=== PATIENT | female | born 1955 | race Caucasian/White ===

== ENCOUNTER → 2020-04-16 09:03 | Outpatient (BNVA) | payer MEDICARE, SELFPAY | PROVIDERS: Family Provider Family Medicine; PCP Family Medicine; Visit Provider Specialist | DX: M79.641 Pain in right hand (principal); M79.642 Pain in left hand; G56.23 Lesion of ulnar nerve, bilateral upper limbs; E11.40 Type 2 diabetes mellitus with diabetic neuropathy, unspecified; Z79.4 Long term (current) use of insulin; Z87.891 Personal history of nicotine dependence | CPT/HCPCS: 95908; 95910 ==

== ENCOUNTER 2021-04-21 13:24 | Emergency (ER) | payer MEDICARE, SELFPAY ==
--- NOTE | 2021-04-21 13:38 | ECG_ITS ---
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 Measurements Intervals [place] Rate: 112 P: 4 ME: 108 QRS: -45 QRSD: 113 T: 34 QT: 327 QTc: 447 Interpretive Statements SINUS TACHYCARDIA WITH SHORT ME INTERVAL POSSIBLE LEFT ATRIAL ENLARGEMENT [-0.1mV P-WAVE IN V1/V2] INCOMPLETE RIGHT BUNDLE BRANCH BLOCK LEFT ANTERIOR FASCICULAR BLOCK [QRS AXIS <= -45, QR IN I, RS IN II] Compared to ECG 10/11/2018 15:53:21 Short ME interval now present Right ventricular hypertrophy now present Incomplete right bundle-branch block now present Left anterior fascicular block now present T-wave abnormality no longer present Electronically Signed On 04-24-2021 19:33:34 DOBBY LOOM WEAVER by Leslie Wick M.D. [id number]
[2021-04-21 14:35] VITALS: BP 190/97; PULSE 115; RESP 16; TEMP 36.8; O2SAT 94
== END 2021-04-21 15:27 ==
PROVIDERS: Emergency Provider Family Medicine; PCP Family Medicine
DX: Z53.21 Procedure and treatment not carried out due to patient leaving prior to being seen by health care provider (principal)
CPT/HCPCS: 93005

== ENCOUNTER 2021-04-23 05:20 | Emergency (ER) | payer MEDICARE, SELFPAY ==
[2021-04-23 05:27] VITALS: BP 174/96; PULSE 112; RESP 18; TEMP 36.8; O2SAT 97; BMI 37.0
--- NOTE | 2021-04-23 05:38 | ED_ITS ---
HPI - Altered Mental Status General: Chief Complaint: Altered Mental Status Stated Complaint: Cant Walk\Cant Sleep\confused on drugs taken Time Seen by Provider: 04/23/21 05:38 History of Present Illness: HPI narrative: 65-year-old female who presents to the emergency room with complaint of confusion. She was here 2 days ago left without being seen. On that same day she was seen in the gym instructor office and her trazodone was stopped she had recently been increased from 150 mg a day to 300/day. No other recent medication changes. Patient alludes to some vague chest pain but she cannot give me any significant details of it. Her is at the bedside he does not supply anything that had exacerbated or relieved her confusion or chest pain. She has not had a recent cough fever sweats or chills that have been reported. Patient denies abdominal pain dysuria urgency or frequency vomiting or diarrhea. MD complaint: altered mental status and confusion Onset (ago): day(s) Timing confirmed by: spouse Severity: moderate Consistency of symptoms: Getting Worse Context: change in medication Associated symptoms: Deny auditory hallucinations, visual hallucinations, delusions, depression, homicidal ideation, racing thoughts or suicidal ideation Review of Systems Const: Denies: fever(s), chills, body aches, change in appetite, fatigue or malaise ENMT: Denies: throat pain, ear or mastoid pain, nasal discharge or nasal congestion Card: Reports: chest pain; Denies: edema, dyspnea on exertion or orthopnea Resp: Denies: dyspnea, productive cough or non-productive cough GI: Denies: abdominal pain, nausea, vomiting, hematemesis, coffee ground emesis, diarrhea, constipation, bloating, hematochezia or melena : Denies: flank pain, difficulty voiding, dysuria, urinary frequency or urinary urgency Psych: Denies: depression, visual hallucinations, auditory hallucinations, suicidal ideation or homicidal ideation PFS ED PFSH: Medical History CHF (congestive heart failure) Palpitations Family History Father Cancer Prostate Hypertension Diabetes Stroke Mother Heart disease Brother Hypertension Physical Exam Const: GENERAL APPEARANCE: cooperative and comfortable ORIENTATION/CONSCIOUSNESS: Yes awake HENMT: COMMON NORMALS: normocephalic, atraumatic and hearing grossly normal bilaterally HEAD & SCALP: normocephalic and atraumatic Neck/C-Spine: COMMON NORMALS: no JVD Resp: COMMON NORMALS: normal respiratory effort, No retractions, No use of accessory muscles and clear to auscultation bilaterally AUSCULTATION: clear to auscultation bilaterally Cardio: COMMON NORMALS: no JVD, regular rate, regular rhythm and No murmurs present (Cardio) RATE: regular rate RHYTHM: regular rhythm GI: COMMON NORMALS: Soft to palpation and No hepatosplenomegaly present AUSCULTATION: Yes normoactive bowel sounds PALPATION: Yes Soft to palpation, No Tenderness to palpation present (GI), No Guarding due to palpation present (GI) and Yes No hepatosplenomegaly present Extremity: COMMON NORMALS: normal to inspection, capillary refill normal, no clubbing, cyanosis or edema, no calf tenderness and no pedal edema Psych: THOUGHT CONTENT: No delusions Skin: COMMON NORMALS: no rashes or lesions noted GENERAL SKIN EXAM: no rashes or lesions noted Course Vital Signs: Vital signs: Vital Signs Temperature 98.3 F 04/23/21 05:27 Pulse Rate 112 H 04/23/21 05:27 Respiratory Rate 18 04/23/21 05:27 Blood Pressure 147/85 04/23/21 09:44 Pulse Oximetry 97 04/23/21 05:27 MDM - Altered Mental Status MDM Narrative: Medical decision making narrative: Is feeling quite a bit better and blood pressure is improved blood glucose has improved she is still extremely anxious. At times is a little bit belligerent and difficult to redirect. reports she is about back to her baseline. I think some of this may be precipitated by the sudden large change in medication, I also suspe ct there may be some underlying dementia and possibly some psychiatric issues. I recommended to the patient and to the that we evaluate for and possibly transfer for geriatric psychiatry evaluation. They both decline despite efforts otherwise they prefer to leave. Advised him they can return at any point if they want to be reevaluated or have further problems. Lab Data: Labs: Lab Results 04/23/21 04/23/21 04/23/21 05:56 06:03 06:03 WBC 6.2 10^3/uL 10^3/ uL (4.0-10.0) RBC 4.98 10^6/uL 10^6 /uL (4.1-5.3) Hgb 13.0 g/dL g/dL (11.5-15.3) Hct 39.0 % % (37.0-47.0) MCV 78.3 fl L fl (81-99) MCH 26.1 pg L pg (28.0-34.0) MCHC 33.3 g/dL g/dL (30.0-36.0) RDW 14.9 % % (12.1-15.1) Plt Count 337 10^3/cmm 10^3 /cmm (130-400) MPV 9.7 fL fL (7.4-10.4) Neut % (Auto) 75.5 % % Lymph % (Auto) 16.7 % % [place] % (Auto) 6.4 % % Eos % (Auto) 0.8 % % Baso % (Auto) 0.3 % % Neut # (Auto) 4.70 10^3/uL 10^3 /uL (1.8-7.7) Lymph # (Auto) 1.0 10^3/uL 10^3/ uL (0.8-4.8) [place] # (Auto) 0.4 10^3/uL 10^3/ uL (0.2-0.9) Eos # (Auto) 0.1 10^3/uL 10^3/ uL (0.0-0.8) Baso # (Auto) 0.0 10^3/uL 10^3/ uL (0.0-0.1) Nucleated RBC % (a uto) 0 % % Nucleated RBCs # 0.0 /100WBC /100W BC Specimen Type Sample Site ABG pH ABG pCO2 ABG pO2 ABG HCO3 ABG O2 Saturation ABG Base Excess [place] Test A-a O2 Gradient Hematocrit Hgb O2 Saturation Carboxyhemoglobin Methemoglobin Total Hemoglobin Ionized Calcium O2 Delivery Device FiO2 Marble And Granite Polisher ID Sodium 134 mmol/L L mmol /L (136-145) Potassium 4.2 mmol/L mmol/L (3.5-5.1) Chloride 96 mmol/L L mmol/ L (98-107) Carbon Dioxide 22 mmol/L mmol/L (22-29) Anion Gap 20.2 H (5-19) BUN 16 mg/dL mg/dL (8-23) Creatinine 0.5 mg/dL mg/dL (0.5-0.9) GFR Calculation 123.1 mL/min mL/m in (90-130) Glucose 323 mg/dL H mg/dL (65-115) POC Glucose 346 mg/dL H mg/dL (70-110) Calculated Osmolal ity 292 mOsm/kg mOsm/ kg (285-295) Lactic Acid Calcium 9.0 mg/dL mg/dL (8.5-10.5) Magnesium 1.9 mg/dL mg/dL (1.7-2.3) Total Bilirubin 0.6 mg/dL mg/dL (0.15-1.2) AST 16 U/L U/L (0-32) ALT 23 U/L U/L (0-33) Alkaline Phosphata se 137 IU/L H IU/L (35-105) Creatine Kinase 48 U/L U/L (26-192) Troponin T Baselin e Troponin T 120 Min [place] Troponin T Total Protein 6.5 g/dL L g/dL (6.6-8.7) Albumin 3.8 g/dL g/dL (3.5-5.2) Globulin 2.7 g/dL g/dL (1.3-4.6) Urine Color Urine Appearance Urine pH Ur Specific Gravit y Urine Protein Urine Glucose (UA) Urine Ketones Urine Blood Urine Nitrate Urine Bilirubin Urine Urobilinogen Ur Leukocyte Saadia ase Urine RBC Urine WBC Ur Squamous Epith Cells Amorphous Sediment Urine Bacteria Digoxin Serum Ketones 04/23/21 04/23/21 04/23/21 06:03 06:03 06:50 WBC RBC Hgb Hct MCV MCH MCHC RDW Plt Count MPV Neut % (Auto) Lymph % (Auto) [place] % (Auto) Eos % (Auto) Baso % (Auto) Neut # (Auto) Lymph # (Auto) [place] # (Auto) Eos # (Auto) Baso # (Auto) Nucleated RBC % (a uto) Nucleated RBCs # Specimen Type Sample Site ABG pH ABG pCO2 ABG pO2 ABG HCO3 ABG O2 Saturation ABG Base Excess [place] Test A-a O2 Gradient Hematocrit Hgb O2 Saturation Carboxyhemoglobin Methemoglobin Total Hemoglobin Ionized Calcium O2 Delivery Device FiO2 Marble And Granite Polisher ID Sodium Potassium Chloride Carbon Dioxide Anion Gap BUN Creatinine GFR Calculation Glucose POC Glucose Calculated Osmolal ity Lactic Acid Calcium Magnesium Total Bilirubin AST ALT Alkaline Phosphata se Creatine Kinase Troponin T Baselin e 33 ng/L H ng/L (0-10) Troponin T 120 Min [place] Troponin T Total Protein Albumin Globulin Urine Color Yellow (Yellow) Urine Appearance Sl hazy (CLEAR) Urine pH 6 (5-7) Ur Specific Gravit y 1.010 (1.005-1.030) Urine Protein Trace (Negative) Urine Glucose (UA) 4+ H (Normal) Urine Ketones 2+ H (Negative) Urine Blood 2+ H (Negative) Urine Nitrate Negative (Negative) Urine Bilirubin Neg (Negative) Urine Urobilinogen 1 mg/dL H mg/dL (Negative) Ur Leukocyte Saadia ase Negative (Negative) Urine RBC 0-4 /hpf H /hpf (0-2) Urine WBC 0-4 /hpf H /hpf (0-5) Ur Squamous Epith Cells 5-10 /hpf H /hpf (0-5) Amorphous Sediment Not Reportable Urine Bacteria 1+ /hpf H /hpf (NONE) Digoxin Serum Ketones Positive H (Negative) 04/23/21 04/23/21 04/23/21 06:53 06:53 07:45 WBC RBC Hgb Hct MCV MCH MCHC RDW Plt Count MPV Neut % (Auto) Lymph % (Auto) [place] % (Auto) Eos % (Auto) Baso % (Auto) Neut # (Auto) Lymph # (Auto) [place] # (Auto) Eos # (Auto) Baso # (Auto) Nucleated RBC % (a uto) Nucleated RBCs # Specimen Type Arterial Sample Site Radial, right ABG pH 7.50 H (7.35-7.45) ABG pCO2 31.0 mmHg L mmHg (35-45) ABG pO2 73.5 mmHg L mmHg (80.0-100.0) ABG HCO3 24.0 mmol/L mmol/ L (22-26) ABG O2 Saturation 96.4 ABG Base Excess 1.4 mmol/L mmol/L (-2.0-2.0) [place]tar Test Pos A-a O2 Gradient 4.7 mmHg L mmHg (5-10) Hematocrit 40.2 % % (37-47) Hgb O2 Saturation 94.7 % L % (95-100) Carboxyhemoglobin 1.1 %THgb %THgb (0.4-20.1) Methemoglobin 0.6 % % (0.4-1.5) Total Hemoglobin 13.1 g/dL g/dL (12-16) Ionized Calcium 1.2 mmol/L mmol/L (1.1-1.4) O2 Delivery Device Room air FiO2 21.0 % % Marble And Granite Polisher ID Ed Sodium 135.0 mmol/L mmol /L (131-143) Potassium 3.8 mmol/L mmol/L (3.5-5.0) Chloride Carbon Dioxide Anion Gap BUN Creatinine GFR Calculation Glucose 336.0 mg/dL H mg/ dL (70-115) POC Glucose Calculated Osmolal ity Lactic Acid 1.2 mmol/L mmol/L (0.5-2.2) Calcium Magnesium Total Bilirubin AST ALT Alkaline Phosphata se Creatine Kinase Troponin T Baselin e Troponin T 120 Min [place] Troponin T Total Protein Albumin Globulin Urine Color Urine Appearance Urine pH Ur Specific Gravit y Urine Protein Urine Glucose (UA) Urine Ketones Urine Blood Urine Nitrate Urine Bilirubin Urine Urobilinogen Ur Leukocyte Saadia ase Urine RBC Urine WBC Ur Squamous Epith Cells Amorphous Sediment Urine Bacteria Digoxin 0.5 ng/mL L ng/mL (0.6-1.2) Serum Ketones 04/23/21 04/23/21 08:13 09:46 WBC RBC Hgb Hct MCV MCH MCHC RDW Plt Count MPV Neut % (Auto) Lymph % (Auto) [place] % (Auto) Eos % (Auto) Baso % (Auto) Neut # (Auto) Lymph # (Auto) [place] # (Auto) Eos # (Auto) Baso # (Auto) Nucleated RBC % (a uto) Nucleated RBCs # Specimen Type Sample Site ABG pH ABG pCO2 ABG pO2 ABG HCO3 ABG O2 Saturation ABG Base Excess [place] Test A-a O2 Gradient Hematocrit Hgb O2 Saturation Carboxyhemoglobin Methemoglobin Total Hemoglobin Ionized Calcium O2 Delivery Device FiO2 Marble And Granite Polisher ID Sodium Potassium Chloride Carbon Dioxide Anion Gap BUN Creatinine GFR Calculation Glucose POC Glucose 147 mg/dL H mg/dL (70-110) Calculated Osmolal ity Lactic Acid Calcium Magnesium Total Bilirubin AST ALT Alkaline Phosphata se Creatine Kinase Troponin T Baselin e Troponin T 120 Min [place] 31.22 ng/L H ng/L (0-10) [place] Troponin T -1.78 ABS# L ABS# (0-10) Total Protein Albumin Globulin Urine Color Urine Appearance Urine pH Ur Specific Gravit y Urine Protein Urine Glucose (UA) Urine Ketones Urine Blood Urine Nitrate Urine Bilirubin Urine Urobilinogen Ur Leukocyte Saadia ase Urine RBC Urine WBC Ur Squamous Epith Cells Amorphous Sediment Urine Bacteria Digoxin Serum Ketones Discharge Plan Discharge Patient Disposition: Home Clinical Impression: Anxiety, Hyperglycemia, Diabetes, Benign essential HTN Condition: Stable Prescriptions: New trazodone 100 mg tablet 100 mg PO BEDTIME Qty: 30 RF: 0 No Action digoxin 250 mcg (0.25 mg) tablet 250 mcg PO DAILY Qty: 90 RF: 3 potassium chloride 20 mEq tablet extended release 20 meq PO BID Qty: 180 RF: 3 albuterol sulfate 90 mcg/actuation HFA aerosol inhaler 2 puff INHALATION Q6H PRN (Reason: Shortness Of Breath) RF: 0 cyclobenzaprine 10 mg tablet 10 mg PO TID PRN (Reason: Muscle Spasm) RF: 0 duloxetine 60 mg capsule,delayed release(DR/EC) 60 mg PO QAM RF: 0 metformin 850 mg tablet 850 mg PO BID RF: 0 Tresiba FlexTouch U-200 200 unit/mL (3 mL) insulin pen 44 unit SUBCUT BEDTIME RF: 0 carvedilol 12.5 mg tablet 12.5 mg PO BID Qty: 180 RF: 3 Aleve 220 mg Tablet 220 mg PO Q12H PRN (Reason: Pain) RF: 0 trazodone 300 mg tablet 300 mg PO BEDTIME RF: 0 duloxetine 30 mg capsule,delayed release(DR/EC) 30 mg PO QAM RF: 0 losartan 50 mg tablet 50 mg PO DAILY RF: 0 Lasix 40 mg tablet 40 mg PO BID RF: 0 Discharge Orders: Discharge ED (Routine); Ordered 04/23/21 Ordered By: Travon Barron Referrals: Jen Hill MD [Primary Care Provider] - Discharge Diet: Usual diet Discharge Activity: Increase activity as tolerated Patient Instructions: Opioid Safety Coding Level of Care Code ED Disc Inspector for Chg Fwd Exam Comprehensive
--- NOTE | 2021-04-23 05:54 | ECG_ITS ---
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 Measurements Intervals [place] Rate: 111 P: 43 UT: 134 QRS: -35 QRSD: 93 T: 36 QT: 335 QTc: 457 Interpretive Statements SINUS TACHYCARDIA LEFT AXIS DEVIATION [QRS AXIS < -30] NONSPECIFIC ST & T-WAVE ABNORMALITY Compared to ECG 10/11/2018 15:53:21 No significant changes Electronically Signed On 04-23-2021 17:45:52 BRIM POUNCER by Terrence Armstrong M.D. [id number] f
--- NOTE | 2021-04-23 05:55 | CTR_ITS ---
PROCEDURE INFORMATION: Exam: CT Head Without Contrast Exam date and time: 04/23/2021 5:55 AM Age: 65 years old Clinical indication: Altered mental status/memory loss; Patient HX: AMS. Increasing confusion. Patient states unable to sleep in last 48 hours after being taken of sleeping medication. Hypertensive. TECHNIQUE: Imaging protocol: Computed tomography of the head without contrast. Radiation optimization: All CT scans at this facility use at least one of these dose optimization techniques: automated exposure control; mA and/or kV adjustment per patient size (includes targeted exams where dose is matched to clinical indication); or iterative reconstruction. COMPARISON: No relevant prior studies available. RADIATION DOSE METRICS: Total DLP (mGy-cm): 750.26 FINDINGS: Brain: There is no acute intracranial hemorrhage. There is lucency in the cerebral white matter, likely microvascular disease although non-specific. No evidence of mass. There is no mass effect or midline shift. Liu white differentiation is intact. There are no extra-axial fluid collections. Cerebral ventricles: The ventricles and sulci are enlarged, consistent with volume loss / atrophy. No hydrocephalus. Paranasal sinuses: Visualized sinuses are unremarkable. No fluid levels. Mastoid air cells: Minimal opacification in inferior aspect of right mastoid otherwise clear. Vasculature: There is vascular calcification. Bones/joints: No acute fracture. Soft tissues: Unremarkable as visualized. CT/CT head wo con* [id number] IMPRESSION: 1. No evidence of acute intracranial abnormality. No evidence of acute infarction, hemorrhage, or mass. 2. Atrophy and microvascular disease.
[2021-04-23 05:59] LABS: Glucose Point of Care 346 mg/dL (70-110)
[2021-04-23 06:14] LABS: Basophils % 0.3 %; Eosinophils # 0.1 10^3/uL (0.0-0.8); Eosinophils % 0.8 %; Lymphocytes % 16.7 %; Mean Corpuscular HGB Conc 33.3 g/dL (30.0-36.0); Mean Corpuscular Hemoglobin 26.1 pg (28.0-34.0); Mean Corpuscular Volume 78.3 fl (81-99); Mean Platelet Volume 9.7 fL (7.4-10.4); Monocytes # 0.4 10^3/uL (0.2-0.9); Monocytes % 6.4 %; Neutrophils % 75.5 %; Nucleated Red Blood Cells % 0 %; Platelet Count 337 10^3/cmm (130-400); Red Blood Count 4.98 10^6/uL (4.1-5.3); Red Cell Distribution Width 14.9 % (12.1-15.1); White Blood Count 6.2 10^3/uL (4.0-10.0)
--- NOTE | 2021-04-23 06:19 | PC.PHAR ---
PT AND PTS VERIFIED MEDICATIONS- BROUGHT IN SOME OF THE MED BOTTLES-PTS STATES THE PT HAS BEEN CONFUSED ON HER MEDICATIONS AND HE TRIED TO HELP HER GET THEM FIXED LAST NIGHT-PTS STATES THE PT ONLY HAS ONE INSULIN RX FILLED ON 03/14/21 45D/S FOR TRESIBA FLEXTOUCH U-200 40 UNITS DAILY PT STATES SHE USES 44 UNITS HS-EXT MED HISTORY SHOWS NOVOLOG PENFILL 100UNIT/ML FILLED ON 09/25/20 100D/S STATES PT DOESNT HAVE-PTS STATES THE PTS TRAZODONE 300MG WAS PUT ON HOLD FOR 10 DAYS
[2021-04-23 06:34] LABS: Ketone (Acetest) Serum Positive (Negative)
[2021-04-23 06:41] LABS: Alanine Aminotransferase 23 U/L (0-33); Albumin Level 3.8 g/dL (3.5-5.2); Alkaline Phosphatase 137 IU/L (35-105); Anion Gap 20.2 (5-19); Aspartate Amino Transferase 16 U/L (0-32); Blood Urea Nitrogen 16 mg/dL (8-23); Carbon Dioxide 22 mmol/L (22-29); Chloride 96 mmol/L (98-107); Creatine Phosphokinase 48 U/L (26-192); Globulin 2.7 g/dL (1.3-4.6); Glomerular Filtration Rate 123.1 mL/min (90-130); Glucose 323 mg/dL (65-115); Magnesium 1.9 mg/dL (1.7-2.3); Osmolality Calculated 292 mOsm/kg (285-295); Potassium 4.2 mmol/L (3.5-5.1); Sodium 134 mmol/L (136-145); Total Bilirubin 0.6 mg/dL (0.15-1.2); Total Protein 6.5 g/dL (6.6-8.7)
[2021-04-23 06:42] LABS: Troponin(5th) Baseline 33 ng/L (0-10)
[2021-04-23 07:10] LABS: Blood Urine 2+ (Negative); Glucose Urine UA 4+ (Normal); Ketones Urine 2+ (Negative); Nitrate Urine Negative (Negative); Protein Urine Trace (Negative); Urine Appearance SL Hazy (CLEAR); Urine Color Yellow (Yellow); pH Urine 6 (5-7)
[2021-04-23 07:11] LABS: Add Urine Microscopic? YES; Bilirubin Urine Neg (Negative); Leukocyte Esterase Urine Negative (Negative); Urobilinogen Urine 1 mg/dL (Negative)
[2021-04-23 07:12] LABS: Add Urine Culture? No; Bacteria Urine 1+ /hpf; RBC Urine 0-4 /hpf (0-2); WBC Urine 0-4 /hpf (0-5)
[2021-04-23 07:50] LABS: Lactic Sepsis W/Reflex 1.2 mmol/L (0.5-2.2)
--- NOTE | 2021-04-23 07:54 | ECG_ITS ---
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 Measurements Intervals [place] Rate: 99 P: 26 MI: 133 QRS: -34 QRSD: 97 T: 35 QT: 360 QTc: 463 Interpretive Statements SINUS RHYTHM POSSIBLE LEFT ATRIAL ENLARGEMENT [-0.1mV P-WAVE IN V1/V2] LEFT AXIS DEVIATION [QRS AXIS < -30] NONSPECIFIC ST & T-WAVE ABNORMALITY Compared to ECG 04/23/2021 05:50:55 Sinus tachycardia no longer present T-wave abnormality still present Electronically Signed On 04-24-2021 19:25:05 MAINTENANCE MECHANIC SUPERVISOR by Leslie Wick M.D. [id number] f
[2021-04-23 07:55] LABS: Alveolar-Arterial Oxygen Gradi 4.7 mmHg (5-10); Arterial Blood Gas Hematocrit 40.2 % (37-47); Base Excess ABG 1.4 mmol/L (-2.0-2.0); Blood Gas Allen Test Pos; Blood Gas Sample Type Arterial; Carboxyhemoglobin 1.1 %THgb (0.4-20.1); HGB O2 Sat 94.7 % (95-100); Ionized Calcium Level - ABG 1.2 mmol/L (1.1-1.4); Methemoglobin 0.6 % (0.4-1.5); Oxygen Saturation ABG 96.4; PO2 ABG 73.5 mmHg (80.0-100.0); Potassium Level - ABG 3.8 mmol/L (3.5-5.0); Total Hemoglobin 13.1 g/dL (12-16)
[2021-04-23 07:56] LABS: Blood Gas Operator Identificat ED; Blood Gas Sample Site Radial, right; Oxygen Device ROOM AIR
[2021-04-23 07:59] LABS: Digoxin 0.5 ng/mL (0.6-1.2)
[2021-04-23] MEDS: metoprolol tartrate 50 mg Tablet PO (08:03)
[2021-04-23] MEDS: metoprolol tartrate 1 mg/1 mL SDV 5 mL 2.5 MG IVP (08:04)
[2021-04-23] MEDS: insulin regular-human 100 units/1 mL 15 UNIT IVP (08:07)
[2021-04-23] MEDS: sodium chloride 0.9% 1,000 ML 999 ML IV (08:14)
--- NOTE | 2021-04-23 08:18 | PC.NURSE ---
Pt placed on continuous cardiac, BP, and SpO2 monitoring.
[2021-04-23 08:47] LABS: Troponin 5 2HR 31.22 ng/L (0-10)
[2021-04-23 08:51] LABS: Troponin 5 2HR Delta -1.78 ABS# (0-10)
[2021-04-23 09:44] VITALS: BP 147/85
[2021-04-23] MEDS: losartan 50 mg Tablet PO (09:44)
[2021-04-23 10:17] LABS: Glucose Point of Care 147 mg/dL (70-110)
== END 2021-04-23 10:12 | disposition home or self-care (01) ==
PROVIDERS: Emergency Provider Family Medicine; PCP Family Medicine
DX: F41.9 Anxiety disorder, unspecified (principal); E11.65 Type 2 diabetes mellitus with hyperglycemia; I11.0 Hypertensive heart disease with heart failure; I50.9 Heart failure, unspecified; Z79.84 Long term (current) use of oral hypoglycemic drugs; Z79.4 Long term (current) use of insulin; Z79.899 Other long term (current) drug therapy
CPT/HCPCS: 36416; 36600; 70450; 80051; 80053; 80162; 81001; 82009; 82330; 82550; 82805; 82962; 83605; 83735; 84484; 85025; 93005; 96361; 96374; 96375; 99284; J1815; J3490; J7030

== ENCOUNTER → 2022-06-01 13:47 | Outpatient (BNVA) | payer MEDICARE, SELFPAY | PROVIDERS: PCP Family Medicine; Visit Provider Internal Medicine Cardiovascular Disease | DX: I11.0 Hypertensive heart disease with heart failure (principal); I50.20 Unspecified systolic (congestive) heart failure; I42.8 Other cardiomyopathies; E11.40 Type 2 diabetes mellitus with diabetic neuropathy, unspecified; Z79.84 Long term (current) use of oral hypoglycemic drugs; J44.9 Chronic obstructive pulmonary disease, unspecified | CPT/HCPCS: 99214 ==

== ENCOUNTER 2022-07-02 15:14 | Outpatient (CLI) | payer MEDICARE, SELFPAY ==
--- NOTE | 2022-07-02 14:30 | USCV_ITS ---
Juli Humphries Age: 66 Gender: F : 1955 Exam Date: 07/02/2022 15:52 Ordering Phys: Terrence Armstrong MD ([email or web address]) Technologist: Yemi Ríos Exam Location: [facility] [place] Indication: cardiomyopathy BP: 110 / 88 HR: 73 Rhythm: Sinus Technical Quality: Adequate MEASUREMENTS (Male / Female) Normal Values 2D ECHO LV Diastolic Diameter PLAX 5.6 cm 4.2 - 5.9 / 3.9 - 5.3 cm LV Systolic Diameter PLAX 4.7 cm IVS Diastolic Thickness 1.1 cm 0.6 - 1.0 / 0.6 - 0.9 cm IVS Systolic Thickness 1.4 cm LVPW Diastolic Thickness 1.4 cm 0.6 - 1.0 / 0.6 - 0.9 cm LVPW Systolic Thickness 1.7 cm LVOT Diameter 2.0 cm LV Ejection Fraction 2D Teich 31.8 % LV Ejection Fraction MOD 2C 30.7 % LV Ejection Fraction 2C AL 31.4 % LA Diameter 3.6 cm LA Width 2.9 cm LA Height 4.7 cm RA Width 3.1 cm RA Height 3.7 cm Aorta at Sinotubular Diameter 2.0 cm IVC Diameter 1.5 cm M-MODE Aortic Annulus Diameter 2.8 cm LA Ao Ratio MM 1.4 MV E Point Septal Separation 1.3 cm DOPPLER AV Peak Velocity 172.7 cm/s LVOT Peak Velocity 81.0 cm/s AV Area Cont Eq vti 1.4 cm squared AV Area Cont Eq pk 1.5 cm squared MV Peak Velocity 144.0 cm/s MV Area PHT 4.0 cm squared Mitral E to A Ratio 0.8 MV E' Velocity 45.5 cm/s Mitral E to MV E' Ratio 19.0 Mitral E to LV E' Lateral Ratio 18.6 Mitral E to LV E' Septal Ratio 19.5 TR Peak Velocity 229.9 cm/s TR Peak Gradient 21.1 mmHg TR Mean Velocity 167.9 cm/s TR Mean Gradient 12.2 mmHg TR Velocity Time Integral 49.7 cm Right Atrial Pressure 3.0 mmHg Pulmonary Artery Systolic Pressu 24.1 mmHg PV Peak Velocity 114.7 cm/s RV Acceleration Time 0.1 s RV Ejection Time 0.2 s RV AcT/ET 0.4 FINDINGS Left Ventricle Diffuse hypokinesia of the left ventricular ejection fraction of 31%.mild left ventricular hypertrophy. Grade I/IV diastolic dysfunction (abnormal relaxation filling pattern), normal to mildly elevated filling pressures. Right Ventricle The right ventricle is normal in size and function. Right Atrium The right atrium is normal in size. Left Atrium Mildly increased left atrial size. Mitral Valve Mild mitral annular calcification. Trace mitral valve regurgitation. Aortic Valve Thickened aortic valve. Tricuspid Valve Trace tricuspid valve regurgitation. Pulmonic Valve No gross abnormalities noted Pericardium No pericardial effusion. Aorta Normal ascending aorta dimension. IVC Normal inferior vena cava. CONCLUSIONS Diffuse hypokinesia of the left ventricular ejection fraction of 31%.mild left ventricular hypertrophy. Mildly dilated LV cavity. Grade I/IV diastolic dysfunction (abnormal relaxation filling pattern), normal to mildly elevated filling pressures. Mildly increased left atrial size. Mild mitral annular calcification. Trace mitral valve regurgitation. Thickened aortic valve. Trace tricuspid valve regurgitation. There is no pericardial effusion. There are no intracardiac masses. Compared to the study from 02/07/2019, there is no significant change in the LV ejection fraction Dr Terrence Armstrong MD [facility] (Electronically Signed) Final Date: 15 July 2022 01:37 S
== END 2022-07-02 15:15 | disposition home or self-care (01) ==
PROVIDERS: PCP Family Medicine; Visit Provider Internal Medicine Cardiovascular Disease
DX: I42.9 Cardiomyopathy, unspecified (principal); I08.3 Combined rheumatic disorders of mitral, aortic and tricuspid valves
CPT/HCPCS: 93306

== ENCOUNTER → 2022-07-23 13:10 | Outpatient (BNVA) | payer MEDICARE, SELFPAY | PROVIDERS: PCP Family Medicine; Visit Provider Nurse Practitioner Family | DX: I42.8 Other cardiomyopathies (principal); I11.0 Hypertensive heart disease with heart failure; I50.9 Heart failure, unspecified | CPT/HCPCS: 99214 ==

== ENCOUNTER 2022-08-07 10:20 | Outpatient (CLI) | payer MEDICARE, SELFPAY ==
[2022-08-07 11:23] LABS: Blood Urea Nitrogen 10 mg/dL (8-23); Calcium 9.6 mg/dL (8.5-10.5); Carbon Dioxide 29 mmol/L (22-29); Chloride 99 mmol/L (98-107); Glomerular Filtration Rate 83.2 mL/min (90-130); Glucose 177 mg/dL (65-115); NT Pro B Type Natriuretic Pept 956 pg/mL (0-125); Osmolality Calculated 289 mOsm/kg (285-295); Sodium 138 mmol/L (136-145)
[2022-08-07 11:25] LABS: Anion Gap 14.3 (5-19); Potassium 4.3 mmol/L (3.5-5.1)
== END 2022-08-07 10:21 | disposition home or self-care (01) ==
PROVIDERS: PCP Family Medicine; Visit Provider Nurse Practitioner Family
DX: I42.8 Other cardiomyopathies (principal); I50.9 Heart failure, unspecified
CPT/HCPCS: 36415; 80048; 83880

== ENCOUNTER 2022-10-11 08:59 | Emergency (ER) | payer MEDICARE, SELFPAY ==
[2022-10-11 09:19] VITALS: BP 150/68; PULSE 75; RESP 18; O2SAT 97; BMI 34.0
--- NOTE | 2022-10-11 09:25 | W.ED.GENADLT ---
HPI - General Adult General: Chief complaint: General Medical Stated complaint: wants referral to neurology(dementia) Time Seen by Provider: 10/11/22 09:12 Source: family () Mode of arrival: ambulatory History of Present Illness: This 66-year-old female who has a history of dementia was brought in by who states that here dementia is progressively getting worse. notes that they see a neurologist at [place] but it is too far away for them to go on a regular basis. He is wanting to see if we can refer them to a local neurologist. is patient's primary caregiver and states that he would not like to put patient in a [facility]. Associated symptoms: Deny chest pain or headache(s) Review of Systems Const: Denies: chills, body aches or change in appetite Eyes: Denies: change in vision or eye discharge ENMT: Denies: throat pain, dental pain or nasal discharge Card: Denies: chest pain or lightheadedness : Denies: dysuria Musc: Denies: neck pain or back pain Neuro: Denies: headache(s) or weakness in extremities Psych: Denies: depression Girish/Lymph: Denies: easy bruising All/Imm: Denies: urticaria, tongue swelling or facial swelling PFSH ED PFSH: Medical History CHF (congestive heart failure) COPD (chronic obstructive pulmonary disease) Palpitations Family History Father Cancer Prostate Hypertension Diabetes Stroke Mother Heart disease Brother Hypertension Physical Exam Const: COMMON NORMALS: no acute distress, no limitations and alert HENMT: COMMON NORMALS: normocephalic HEAD & SCALP: normocephalic Eye: COMMON NORMALS: EOMs intact bilaterally Neck/C-Spine: COMMON NORMALS: full ROM and supple Chest: COMMONS NORMALS: normal inspection of the chest Resp: COMMON NORMALS: normal respiratory effort, No retractions, No use of accessory muscles and clear to auscultation bilaterally AUSCULTATION: clear to auscultation bilaterally Cardio: COMMON NORMALS: regular rate, regular rhythm and No murmurs present (Cardio) RATE: regular rate RHYTHM: regular rhythm GI: COMMON NORMALS: Normal to inspection, nondistended, normoactive bowel sounds present and non-tender : COMMON NORMALS: Yes no CVA tenderness BLADDER/KIDNEY EXAM: Yes no CVA tenderness Back/Pelvis: COMMON NORMALS: no CVA tenderness and no thoracic nor lumbar tenderness Extremity: GENERAL: Yes normal exam except as noted Neuro: COMMON NORMALS: no focal motor deficits SENSORIUM/ORIENTATION: Yes alert OTHER: Patient knows she is in ER in [place], knows who the president is but thinks that this is 2055. Psych: COMMON NORMALS: mental status grossly normal and cooperative Course Vital Signs: Vital signs: Vital Signs Temperature 98.3 F 10/11/22 09:38 Pulse Rate 75 10/11/22 09:38 Respiratory Rate 18 10/11/22 09:38 Blood Pressure 144/83 10/11/22 09:38 Pulse Oximetry 95 10/11/22 09:38 Oxygen Delivery Me thod Room Air 10/11/22 09:38 MDM - General Adult Medical Decision Making Medical decision making: History as above. Clinical exam and blood tests reveal no acute process at this time. She is quite cooperative and interacts well with her . Unfortunately, the neurologist (Dr. Candelario) is not on-call today. So, an order was placed for case management to schedule a follow-up appointment for patient. There is no indication to admit patient given that patient is clinically stable. Reasons to return were discussed. verbalized understanding and agrees with the plan. Lab Data 10/11/22 10:03 10/11/22 10:03 Laboratory Results WBC 3.7 10^3/uL (4.0-10.0) L 10/11/22 10:03 Corrected WBC Cancelled 10/11/22 09:20 RBC 5.47 10^6/uL (4.1-5.3) H 10/11/22 10:03 Hgb 13.8 g/dL (11.5-15.3) 10/11/22 10:03 Hct 44.2 % (37.0-47.0) 10/11/22 10:03 MCV 80.8 fl (81-99) L 10/11/22 10:03 MCH 25.2 pg (28.0-34.0) L 10/11/22 10:03 MCHC 31.2 g/dL (30.0-36.0) 10/11/22 10:03 RDW 15.4 % (12.1-15.1) H 10/11/22 10:03 Plt Count 244 10^3/cmm (130-400) 10/11/22 10:03 MPV 10.2 fL (7.4-10.4) 10/11/22 10:03 Gran % Cancelled 10/11/22 09:20 Neut % (Auto) 48.7 % 10/11/22 10:03 Lymph % (Auto) 40.4 % 10/11/22 10:03 [place] % (Auto) 8.2 % 10/11/22 10:03 Eos % (Auto) 1.9 % 10/11/22 10:03 Baso % (Auto) 0.5 % 10/11/22 10:03 Neut # (Auto) 1.78 10^3/uL (1.8-7.7) L 10/11/22 10:03 Lymph # (Auto) 1.5 10^3/uL (0.8-4.8) 10/11/22 10:03 [place] # (Auto) 0.3 10^3/uL (0.2-0.9) 10/11/22 10:03 Eos # (Auto) 0.1 10^3/uL (0.0-0.8) 10/11/22 10:03 Baso # (Auto) 0.0 10^3/uL (0.0-0.1) 10/11/22 10:03 Absolute Gran (auto) Cancelled 10/11/22 09:20 Nucleated RBC % (auto) 0 % 10/11/22 10:03 Nucleated RBCs # 0.0 /100WBC 10/11/22 10:03 Sodium 130 mmol/L (136-145) L 10/11/22 10:03 Potassium 3.8 mmol/L (3.5-5.1) 10/11/22 10:03 Chloride 95 mmol/L (98-107) L 10/11/22 10:03 Carbon Dioxide 25 mmol/L (22-29) 10/11/22 10:03 Anion Gap 13.8 (5-19) 10/11/22 10:03 BUN 13 mg/dL (8-23) 10/11/22 10:03 Creatinine 0.7 mg/dL (0.5-0.9) 10/11/22 10:03 GFR Calculation 83.2 mL/min (90-130) L 10/11/22 10:03 Glucose 307 mg/dL (65-115) H 10/11/22 10:03 Calculated Osmolality 282 mOsm/kg (285-295) L 10/11/22 10:03 Calcium 9.4 mg/dL (8.5-10.5) 10/11/22 10:03 Total Bilirubin 0.5 mg/dL (0.15-1.2) 10/11/22 10:03 AST 12 U/L (0-32) 10/11/22 10:03 ALT 8 U/L (0-33) 10/11/22 10:03 Alkaline Phosphatase 115 U/L (35-105) H 10/11/22 10:03 Total Protein 6.7 g/dL (6.6-8.7) 10/11/22 10:03 Albumin 3.5 g/dL (3.5-5.2) 10/11/22 10:03 Globulin 3.2 g/dL (1.3-4.6) 10/11/22 10:03 Discharge Plan Discharge Patient Disposition: Home Clinical Impression: Dementia Condition: Stable Prescriptions: No Action albuterol sulfate 90 mcg/actuation HFA aerosol inhaler 2 puff INHALATION Q6H PRN (Reason: Shortness Of Breath) cyclobenzaprine 10 mg tablet 10 mg PO TID PRN (Reason: Muscle Spasm) metformin 850 mg tablet 850 mg PO BID Tresiba FlexTouch U-200 200 unit/mL (3 mL) insulin pen 44 unit SUBCUT BEDTIME potassium chloride 20 mEq tablet extended release 20 meq PO DAILY Qty: 180 3RF mecobalamin (vitamin B12) 1,000 mcg tablet,chewable 1,000 mcg PO DAILY donepezil 5 mg tablet 5 mg PO DAILY pregabalin [Lyrica] 75 mg capsule 75 mg PO DIRECTED Rx Instructions: 75mg in AM and 150mg in PM furosemide [Lasix] 40 mg tablet 40 mg PO BID Qty: 180 3RF carvedilol 12.5 mg tablet 12.5 mg PO BID Qty: 180 2RF digoxin 250 mcg (0.25 mg) tablet 250 mcg PO DAILY Qty: 14 0RF Entresto 97-103 mg tablet 1 tab PO BID Qty: 60 2RF Aleve 220 mg Tablet 220 mg PO Q12H PRN (Reason: Pain) duloxetine 30 mg capsule,delayed release(DR/EC) 30 mg PO QAM Rx Instructions: TAKE WITH 60MG TO =90MG Discharge Orders: Discharge ED (Routine); Ordered 10/11/22 Ordered By: Emmanuel Pereira Referrals: Jen Hill MD [Primary Care Provider] - Discharge Diet: Usual diet Discharge Activity: Resume usual activity Patient Instructions: Opioid Safety, Pain Management Activity Restrictions/Additional Instructions: Case management will schedule an appointment for you to see Dr. Candelario, the neurologist. They will contact you with an appointment time. Continue usual home medications. Return with new or worsening symptoms. Coding Level of Care Code ED Software Engineering Manager for Imani Castellanos
--- NOTE | 2022-10-11 09:34 | PC.NURSE ---
DISCUSSION IN REGARDS TO POTENTIAL [facility] OR ASSISTED LIVING. CAREGIVER STATES THAT HE DOES NOT WANT TO DO THAT BECAUSE PEOPLE GO THERE TO . PATIENT HAS NEUROLOGY APPOINTMENT IN NOVEMBER AT [facility]. PROVIDER NOTIFIED OF DISCUSSION.
[2022-10-11 09:38] VITALS: BP 144/83; PULSE 75; RESP 18; TEMP 36.8; O2SAT 95
[2022-10-11 10:13] LABS: Basophils % 0.5 %; Eosinophils # 0.1 10^3/uL (0.0-0.8); Eosinophils % 1.9 %; Hematocrit 44.2 % (37.0-47.0); Hemoglobin 13.8 g/dL (11.5-15.3); Lymphocytes # 1.5 10^3/uL (0.8-4.8); Lymphocytes % 40.4 %; Mean Corpuscular HGB Conc 31.2 g/dL (30.0-36.0); Mean Corpuscular Hemoglobin 25.2 pg (28.0-34.0); Mean Corpuscular Volume 80.8 fl (81-99); Mean Platelet Volume 10.2 fL (7.4-10.4); Monocytes # 0.3 10^3/uL (0.2-0.9); Monocytes % 8.2 %; Neutrophils # 1.78 10^3/uL (1.8-7.7); Neutrophils % 48.7 %; Nucleated Red Blood Cells % 0 %; Platelet Count 244 10^3/cmm (130-400); Red Blood Count 5.47 10^6/uL (4.1-5.3); Red Cell Distribution Width 15.4 % (12.1-15.1); White Blood Count 3.7 10^3/uL (4.0-10.0)
[2022-10-11 10:26] LABS: Alanine Aminotransferase 8 U/L (0-33); Albumin Level 3.5 g/dL (3.5-5.2); Alkaline Phosphatase 115 U/L (35-105); Anion Gap 13.8 (5-19); Aspartate Amino Transferase 12 U/L (0-32); Blood Urea Nitrogen 13 mg/dL (8-23); Calcium 9.4 mg/dL (8.5-10.5); Carbon Dioxide 25 mmol/L (22-29); Chloride 95 mmol/L (98-107); Globulin 3.2 g/dL (1.3-4.6); Glomerular Filtration Rate 83.2 mL/min (90-130); Glucose 307 mg/dL (65-115); Osmolality Calculated 282 mOsm/kg (285-295); Potassium 3.8 mmol/L (3.5-5.1); Sodium 130 mmol/L (136-145); Total Bilirubin 0.5 mg/dL (0.15-1.2); Total Protein 6.7 g/dL (6.6-8.7)
[2022-10-11 11:16] VITALS: BP 166/79; PULSE 69; O2SAT 96
--- NOTE | 2022-10-12 09:46 | DCPLANNER ---
Addendum entered by Katharina Bello 12/04/22 10:41: Patient did attend this appointment with neurology Addendum entered by Katharina Bello 10/13/22 15:50: Patient has a follow up appointment scheduled for November at 9:[address] Chadwick at neurology. Original Note: plant engineering manager had message to schedule a follow up appointment for patient with neurology. plant engineering manager sent patients information to the front office staff at neurology. Patients information will be printed and reviewed. Clinic will call patient with appointment information.
== END 2022-10-11 11:17 | disposition home or self-care (01) ==
PROVIDERS: Emergency Provider Family Medicine; PCP Family Medicine
DX: F03.90 Unspecified dementia, unspecified severity, without behavioral disturbance, psychotic disturbance, mood disturbance, and anxiety (principal); I50.9 Heart failure, unspecified; J44.9 Chronic obstructive pulmonary disease, unspecified
CPT/HCPCS: 36415; 80053; 85025; 99283

== ENCOUNTER 2022-11-18 04:12 | Observation (INO) | payer MEDICARE, SELFPAY ==
[2022-11-18] VITALS (10 sets, daily range): BP systolic 145–190; BP diastolic 60–97; PULSE 49–98; RESP 15–18; TEMP 36.7–37.1; O2SAT 93–100; BMI 33.4
[2022-11-18 04:47] LABS: Glucose Point of Care 481 mg/dL (70-110)
--- NOTE | 2022-11-18 04:52 | W.ED.AMS ---
HPI - Altered Mental Status General: Chief Complaint: Altered Mental Status Stated Complaint: ams Time Seen by Provider: 11/18/22 04:23 History of Present Illness: 67-year-old female with complex medical history including dementia, diabetes, hypertension, COPD and CHF. Patient was brought to emergency room by because of behavioral problem. Transplant patient is refusing all her medication including insulin and heart medication. No recent fall or head injury. Fever, nausea or vomiting. Upon present emergency room patient is awake but very aggressive towards the . Associated symptoms: Deny visual hallucinations, homicidal ideation or suicidal ideation Review of Systems General: Reports: 10 or more systems reviewed and unremarkable except in HPI and below Const: Denies: fever(s), chills or body aches Card: Denies: chest pain, palpitations, irregular heart rhythm, edema, swelling of feet/ankles or lightheadedness : Denies: flank pain, difficulty voiding, dysuria, urinary frequency, urinary urgency or urinary hesitancy Neuro: Reports: confusion; Denies: headache(s), numbness in extremities, weakness in extremities, sensory changes, lack of coordination, dizziness or vertigo Psych: Reports: irritability; Denies: visual hallucinations, tactile hallucinations, suicidal ideation or homicidal ideation PFSH ED PFSH: Medical History Asthma Cardiomyopathy CHF (congestive heart failure) COPD (chronic obstructive pulmonary disease) Emphysema of lung Fibromyalgia Palpitations Surgical History S/P appendectomy S/P breast biopsy S/P cardiac catheterization S/P hysterectomy S/P knee surgery S/P tonsillectomy S/P tubal ligation Family History Father Cancer Prostate Hypertension Diabetes Stroke Mother Heart disease Brother Hypertension Social History Lives independently: No Household members: spouse Marital status: Physical Exam Const: EXAM LIMITATIONS: behavioral limitations GENERAL APPEARANCE: cooperative, well kempt and appears older than stated age; not anxious, not lethargic and no odor of alcohol detected NUTRITIONAL APPEARANCE: obese and overweight ORIENTATION/CONSCIOUSNESS: not lethargic HENMT: COMMON NORMALS: normocephalic, atraumatic, hearing grossly normal bilaterally, external ears normal, EAC's normal, TM's normal bilaterally, Normal external nose present, Normal nasal mucous membranes and turbinates present, moist oral mucous membranes, oropharynx normal, dentition normal and gingiva normal HEAD & SCALP: normocephalic and atraumatic NOSE: Normal external nose present and Normal nasal mucous membranes and turbinates present EXTERNAL EAR: Yes external ears normal EXTERNAL AUDITORY CANAL: EAC's normal TYMPANIC MEMBRANE: TM's normal bilaterally Eye: COMMON NORMALS: Equal, round and reactive pupils present, EOMs intact bilaterally, conjunctivae normal, no scleral icterus, no papilledema, normal visual lang by confrontation and fundi normal bilaterally CONJUNCTIVA: Yes conjunctivae normal PUPIL: Yes Equal, round and reactive pupils present DIRECT OPHTHALMOSCOPY: Yes no papilledema and Yes fundi normal bilaterally Neck/C-Spine: COMMON NORMALS: no meningeal signs and no JVD Chest: COMMONS NORMALS: normal inspection of the chest, normal palpation of entire chest wall, normal inspection of the breasts and normal palpation of the breasts Resp: COMMON NORMALS: normal respiratory effort, No retractions, No use of accessory muscles, clear to auscultation bilaterally and percussion normal AUSCULTATION: clear to auscultation bilaterally PERCUSSION: percussion normal Cardio: COMMON NORMALS: no JVD, regular rate, regular rhythm, S1 normal heart sound present, S2 normal heart sound present, No gallops present (Cardio), No clicks present (Cardio), No murmurs present (Cardio), No rub (Cardio) and Peripheral pulses 2+ throughout RATE: regular rate RHYTHM: regular rhythm HEART SOUNDS: S1 normal heart sound present and S2 normal heart sound present PERIPHERAL PULSES: Peripheral pulses 2+ throughout GI: COMMON NORMALS: Normal to inspection, nondistended, normoactive bowel sounds present, Soft to palpation, non-tender, No hepatosplenomegaly present, no masses and no bruits PALPATION: Yes Soft to palpation and Yes No hepatosplenomegaly present Neuro: SENSORIUM/ORIENTATION: No lethargic MENINGEAL SIGNS: Yes no meningeal signs, No nuccal rigidity, No Brudzinski's sign present and No Kernig's sign presnet CRANIAL NERVES: Yes CN normal except as noted MOTOR EXAM: 5/5 motor strength present throughout, Pronator motor function not present, no tremor noted and Motor fasciculations not present Psych: COMMON NORMALS: Normal thought process present and speech normal APPEARANCE: Yes well kempt and No disheveled ATTITUDE: Yes agitated SPEECH: Yes normal speech MOOD & AFFECT: Yes hostile affect THOUGHT PROCESS: Normal thought process present Skin: COMMON NORMALS: no rashes or lesions noted, no wounds, turgor normal, no jaundice, no petechiae and no mottling GENERAL SKIN EXAM: no rashes or lesions noted and turgor normal Course Vital Signs: Vital signs: Vital Signs Temperature 98.3 F 11/20/22 03:59 Pulse Rate 68 11/20/22 03:59 Respiratory Rate 16 11/20/22 03:59 Blood Pressure 145/82 11/20/22 03:59 Pulse Oximetry 95 11/20/22 03:59 Oxygen Delivery Me thod Room Air 11/20/22 03:59 MDM - Altered Mental Status Medical Decision Making Patient made comfortable emergency room. Patient had extensive work-up done including CBC, CMP, UDS, UA. She was given IV fluids and IV insulin. Discussed patient with the hospitalist. The hospital. Patient will benefit from geropsych Differential Diagnosis Likely alcoholic intoxication, altered mental status, delirium, dementia, hypoglycemia, hyponatremia, subarachnoid hemorrhage and sepsis Lab Data 11/20/22 04:26 11/20/22 04:26 Laboratory Results WBC 4.6 10^3/uL (4.0-10.0) 11/18/22 04:25 RBC 5.36 10^6/uL (4.1-5.3) H 11/18/22 04:25 Hgb 13.7 g/dL (11.5-15.3) 11/18/22 04:25 Hct 42.8 % (37.0-47.0) 11/18/22 04:25 MCV 79.9 fl (81-99) L 11/18/22 04:25 MCH 25.6 pg (28.0-34.0) L 11/18/22 04:25 MCHC 32.0 g/dL (30.0-36.0) 11/18/22 04:25 RDW 15.2 % (12.1-15.1) H 11/18/22 04:25 Plt Count 228 10^3/cmm (130-400) 11/18/22 04:25 MPV 11.2 fL (7.4-10.4) H 11/18/22 04:25 Neut % (Auto) 59.8 % 11/18/22 04:25 Lymph % (Auto) 30.1 % 11/18/22 04:25 [place] % (Auto) 6.7 % 11/18/22 04:25 Eos % (Auto) 3.2 % 11/18/22 04:25 Baso % (Auto) 0.2 % 11/18/22 04:25 Neut # (Auto) 2.76 10^3/uL (1.8-7.7) 11/18/22 04:25 Lymph # (Auto) 1.4 10^3/uL (0.8-4.8) 11/18/22 04:25 [place] # (Auto) 0.3 10^3/uL (0.2-0.9) 11/18/22 04:25 Eos # (Auto) 0.2 10^3/uL (0.0-0.8) 11/18/22 04:25 Baso # (Auto) 0.0 10^3/uL (0.0-0.1) 11/18/22 04:25 Nucleated RBC % (auto) 0 % 11/18/22 04:25 Nucleated RBCs # 0.0 /100WBC 11/18/22 04:25 Sodium 136 mmol/L (136-145) 11/18/22 04:25 Potassium 4.3 mmol/L (3.5-5.1) 11/18/22 04:25 Chloride 98 mmol/L (98-107) 11/18/22 04:25 Carbon Dioxide 27 mmol/L (22-29) 11/18/22 04:25 Anion Gap 15.3 (5-19) 11/18/22 04:25 BUN 18 mg/dL (8-23) 11/18/22 04:25 Creatinine 0.8 mg/dL (0.5-0.9) 11/18/22 04:25 GFR Calculation 71.1 mL/min (90-130) L 11/18/22 04:25 Glucose 535 mg/dL (65-115) H* 11/18/22 04:25 POC Glucose 342 mg/dL (70-110) H 11/18/22 07:13 Estimat Average Glucose 246 11/18/22 04:25 Hemoglobin A1c 10.2 % (4.0-6.0) H 11/18/22 04:25 Calculated Osmolality 308 mOsm/kg (285-295) H 11/18/22 04:25 Calcium 9.5 mg/dL (8.5-10.5) 11/18/22 04:25 Magnesium 1.9 mg/dL (1.7-2.3) 11/18/22 04:25 Total Bilirubin 0.4 mg/dL (0.15-1.2) 11/18/22 04:25 AST 13 U/L (0-32) 11/18/22 04:25 ALT 11 U/L (0-33) 11/18/22 04:25 Alkaline Phosphatase 131 U/L (35-105) H 11/18/22 04:25 Total Protein 7.0 g/dL (6.6-8.7) 11/18/22 04:25 Albumin 3.6 g/dL (3.5-5.2) 11/18/22 04:25 Globulin 3.4 g/dL (1.3-4.6) 11/18/22 04:25 Urine Color Yellow (Yellow) 11/18/22 04:40 Urine Appearance Clear (CLEAR) 11/18/22 04:40 Urine pH 6 (5-7) 11/18/22 04:40 Ur Specific [place] 1.010 (1.005-1.030) 11/18/22 04:40 Urine Protein Neg (Negative) 11/18/22 04:40 Urine Glucose (UA) 4+ (Normal) H 11/18/22 04:40 Urine Ketones Negative (Negative) 11/18/22 04:40 Urine Blood Neg (Negative) 11/18/22 04:40 Urine Nitrate Negative (Negative) 11/18/22 04:40 Urine Bilirubin Neg (Negative) 11/18/22 04:40 Urine Urobilinogen Norm mg/dL (Negative) 11/18/22 04:40 Ur Leukocyte Esterase Negative (Negative) 11/18/22 04:40 Urine Opiates Screen Negative ng/mL (Negative) 11/18/22 04:40 Ur Barbiturates Screen Negative ng/mL (Negative) 11/18/22 04:40 Ur Phencyclidine Scrn Negative ng/mL (Negative) 11/18/22 04:40 Ur Amphetamines Screen Negative ng/mL (Negative) 11/18/22 04:40 U Benzodiazepines Scrn Negative ng/mL (Negative) 11/18/22 04:40 Urine Cocaine Screen Negative ng/mL (Negative) 11/18/22 04:40 U Marijuana (THC) Screen Negative ng/mL (Negative) 11/18/22 04:40 Ethyl Alcohol < 10 mg/dL (0-10) 11/18/22 04:25 Critical Care Time Critical Care Time: Critical Care Time: Yes Total Critical Care Time: 40 Attestation: Time spent discussing patient with the hospitalist, family. He was given IV fluid and IV insulin multiple times due to elevated blood sugar. Discharge Plan Discharge Patient Disposition: Admitted As Inpatient Admit Provider: Grant Peña Clinical Impression: Dementia, Acute hyperglycemia Condition: Stable Coding Level of Care Code ED Electroplating Sales Representative for Imani Castellanos
[2022-11-18] MEDS: sodium chloride 0.9% 1,000 ML 999 ML IV (05:01)
[2022-11-18 05:02] LABS: Add Urine Microscopic? NO; Charge for UA Resulting for Rev
[2022-11-18 05:05] LABS: Basophils % 0.2 %; Eosinophils # 0.2 10^3/uL (0.0-0.8); Eosinophils % 3.2 %; Hematocrit 42.8 % (37.0-47.0); Hemoglobin 13.7 g/dL (11.5-15.3); Lymphocytes # 1.4 10^3/uL (0.8-4.8); Lymphocytes % 30.1 %; Mean Corpuscular Hemoglobin 25.6 pg (28.0-34.0); Mean Corpuscular Volume 79.9 fl (81-99); Mean Platelet Volume 11.2 fL (7.4-10.4); Monocytes # 0.3 10^3/uL (0.2-0.9); Monocytes % 6.7 %; Neutrophils # 2.76 10^3/uL (1.8-7.7); Neutrophils % 59.8 %; Nucleated Red Blood Cells % 0 %; Platelet Count 228 10^3/cmm (130-400); Red Blood Count 5.36 10^6/uL (4.1-5.3); Red Cell Distribution Width 15.2 % (12.1-15.1); White Blood Count 4.6 10^3/uL (4.0-10.0)
[2022-11-18 05:05] LABS: Bilirubin Urine Neg (Negative); Blood Urine Neg (Negative); Glucose Urine UA 4+ (Normal); Ketones Urine Negative (Negative); Leukocyte Esterase Urine Negative (Negative); Nitrate Urine Negative (Negative); Protein Urine Neg (Negative); Urine Appearance Clear (CLEAR); Urine Color Yellow (Yellow); Urobilinogen Urine Norm (Negative); pH Urine 6 (5-7)
[2022-11-18 05:13] LABS: Amphetamines Screen Urine Negative (Negative); Barbiturates Screen Urine Negative (Negative); Benzodiazepines Screen Urine Negative (Negative); Cocaine Screen Urine Negative (Negative); Opiate Screen Urine Negative (Negative); PCP Screen Urine Negative (Negative); THC Screen Urine Negative (Negative)
[2022-11-18 05:14] LABS: Alanine Aminotransferase 11 U/L (0-33); Albumin Level 3.6 g/dL (3.5-5.2); Alkaline Phosphatase 131 U/L (35-105); Aspartate Amino Transferase 13 U/L (0-32); Blood Urea Nitrogen 18 mg/dL (8-23); Calcium 9.5 mg/dL (8.5-10.5); Carbon Dioxide 27 mmol/L (22-29); Chloride 98 mmol/L (98-107); Globulin 3.4 g/dL (1.3-4.6); Glomerular Filtration Rate 71.1 mL/min (90-130); Magnesium 1.9 mg/dL (1.7-2.3); Osmolality Calculated 308 mOsm/kg (285-295); Sodium 136 mmol/L (136-145); Total Bilirubin 0.4 mg/dL (0.15-1.2)
[2022-11-18 05:21] LABS: Alcohol Level < 10 mg/dL (0-10); Anion Gap 15.3 (5-19); Potassium 4.3 mmol/L (3.5-5.1)
[2022-11-18 05:22] LABS: Glucose 535 mg/dL (65-115)
[2022-11-18] MEDS: insulin regular-human 100 units/1 mL 6 UNIT IVP (05:35)
--- NOTE | 2022-11-18 05:35 | PC.NURSE ---
insulin 6units verified with Martine resendiz
[2022-11-18 06:18] LABS: Glucose Point of Care 423 mg/dL (70-110)
[2022-11-18] MEDS: OLANZapine 10 mg VIAL 5 MG IM ×2 (06:30→16:37)
[2022-11-18 07:18] LABS: Glucose Point of Care 342 mg/dL (70-110)
[2022-11-18] MEDS: insulin regular-human 100 units/1 mL 5 UNIT IVP (07:43)
--- NOTE | 2022-11-18 07:43 | PC.NURSE ---
INSULIN DOSE 5UNITS REGULAR HUMAN VERIFIED BY LILLIE GONZALEZ
--- NOTE | 2022-11-18 09:53 | PC.NURSE ---
Patient arrived to floor via w/c with at bedside. is able to help with admission. Patient is AAOx2, elevated BP with remaining VSS. Patient has bruises to BLE and abdomen, sores to vaginal areas and moisture damage to groin. Postule wound to right outer year. AMS increased since yesterday patient states, I'm going crazy so I called my brothers. I went to doctor and was sent here. states that patient has not been wanting to take her medications because she doesn't want to live anymore, patient yelled at him, shut up and get out. Patient denied the claims. Room clean and clutter free with call light within reach. Patient education of call light, room lights, tv, frequent turns. Will continue to monitor.
--- NOTE | 2022-11-18 10:44 | P.HP_ITS ---
Providers/Chief Complaint Admitting Physician: Grant Peña Primary Care Provider: Jen Hill MD Chief Complaint: ams History of Present Illness 67-year-old lady with history of dementia, nonischemic cardiomyopathy with CHF, COPD, diabetes, was brought in for evaluation to emergency department by her due to behavioral problem, it appears she has been refusing insulin and her heart medication. In ER she was found awake but aggressive towards . On evaluation of says she was not initially oriented to her location thinking she was in [place], however, when I had seen her did states she was and [place], able to tell me the year, he is not a good historian and her is not in the room, she does not know why she is in the hospital, thought she was here due to her heart, but when asked does state that her sugars have been elevated at home. Does not seem to give history of refusing insulin, states sugars were just difficult to control . Denies pain or discomfort. In ER blood glucose is noted in 600s. Received insulin. Recheck is still elevated 342. Admission to [facility] was considered from ER, however, hospitalization was requested by ER physician first due to uncontrolled blood glucose. Review of Systems Const: Denies: fever(s), chills, body aches or malaise Eyes: Denies: change in vision, eye discomfort or eye redness ENMT: Denies: throat pain, oral sores or ear or mastoid pain Card: Denies: chest pain, edema, pre-syncope or dyspnea on exertion Resp: Denies: dyspnea, productive cough, change in phlegm color or hemoptysis GI: Denies: abdominal pain, nausea, vomiting, diarrhea, constipation, hematochezia or melena : Denies: flank pain, urinary frequency or hematuria Musc: Denies: back pain, joint swelling or joint redness Skin/Breast: Denies: rash or new lesions Neuro: Denies: headache(s), numbness in extremities, weakness in extremities, dizziness, confusion or seizure-like activity Medications/Allergies Home Medications Medication Instructions Recorded Confirmed Last Taken Type albuterol sulfate 90 mcg/actuation 2 puff inhalation Q6H PRN 04/20/19 11/18/22 Unknown History aerosol inhaler Shortness Of Breath insulin degludec 200 unit/mL (3 44 unit SUBCUT BEDTIME 04/16/20 11/18/22 11/17/22 History mL) subcutaneous pen (Tresiba FlexTouch U-200 insulin) duloxetine 30 mg capsule,delayed 30 mg PO QAM 04/23/21 11/18/22 11/17/22 History release naproxen sodium 220 mg tablet 220 mg PO Q12H PRN Pain 04/23/21 11/18/22 Unknown History (Aleve) donepezil 5 mg tablet 5 mg PO DAILY 06/01/22 11/18/22 11/17/22 History mecobalamin (vitamin B12) 1,000 1,000 mcg PO DAILY 06/01/22 11/18/22 11/17/22 History mcg chewable tablet furosemide 40 mg tablet (Lasix) 40 mg PO BID #180 tabs 06/10/22 11/18/22 11/17/22 Rx carvedilol 12.5 mg tablet 12.5 mg PO BID #180 tabs 06/15/22 11/18/22 Unknown Rx digoxin 250 mcg (0.25 mg) tablet 250 mcg PO DAILY #14 tabs 06/16/22 11/18/22 11/17/22 Rx potassium chloride 20 mEq 20 meq PO DAILY #180 tabs 07/23/22 11/18/22 11/17/22 Rx tablet,extended release pregabalin 75 mg capsule (Lyrica) 75 mg PO DIRECTED 07/23/22 11/18/22 11/17/22 History sacubitril 97 mg-valsartan 103 mg See Rx Instructions .Route 11/09/22 11/18/22 Unknown Rx tablet (Entresto) .COMPLEX #60 tabs buspirone 10 mg tablet 20 mg PO BID 11/18/22 11/18/22 11/17/22 History cholecalciferol (vitamin D3) 25 25 mcg PO DAILY 11/18/22 11/18/22 11/17/22 History mcg (1,000 unit) capsule (Vitamin D3) insulin lispro 100 unit/mL See Rx Instructions .Route .COMPLEX 11/18/22 11/18/22 11/17/22 History subcutaneous pen memantine 10 mg tablet 10 mg PO BID 11/18/22 11/18/22 11/17/22 History Allergies Allergy/AdvReac Type Severity Reaction Status Date / Time No Known Allergies Allergy Verified 11/18/22 04:24 PFSH Acute PFSH: Medical History Asthma Cardiomyopathy CHF (congestive heart failure) COPD (chronic obstructive pulmonary disease) Emphysema of lung Fibromyalgia Palpitations Surgical History S/P appendectomy S/P breast biopsy S/P cardiac catheterization S/P hysterectomy S/P knee surgery S/P tonsillectomy S/P tubal ligation Family History Father Cancer Prostate Hypertension Diabetes Stroke Mother Heart disease Brother Hypertension Social History Lives independently: No Household members: spouse Marital status: Vitals/I&O/Wt Last Vital Signs Temp 98.1 F 11/18/22 04:18 Pulse 93 11/18/22 07:56 Resp 18 11/18/22 07:56 BP 190/97 11/18/22 05:24 Pulse Ox 93 11/18/22 07:56 O2 Del Method Room Air 11/18/22 08:28 11/17/22 11/18/22 11/18/22 22:59 06:59 14:59 Intake Total 1000 / 1000 Output Total 200 / 200 Balance 800 / 800 Weight last 48 hrs Weight 80.286 kg Physical Exam Const: COMMON NORMALS: alert; negative for patient oriented x3 GENERAL APPEARANCE: cooperative NUTRITIONAL APPEARANCE: overweight ORIENTATION/CONSCIOUSNESS: Yes awake HENMT: COMMON NORMALS: oropharynx normal Neck/C-Spine: COMMON NORMALS: no JVD Resp: COMMON NORMALS: normal respiratory effort and clear to auscultation bilaterally AUSCULTATION: clear to auscultation bilaterally Cardio: COMMON NORMALS: no JVD, regular rhythm, S1 normal heart sound present, S2 normal heart sound present and No murmurs present (Cardio) RHYTHM: regular rhythm HEART SOUNDS: S1 normal heart sound present and S2 normal heart sound present GI: COMMON NORMALS: Normal to inspection, nondistended, normoactive bowel sounds present, Soft to palpation and non-tender PALPATION: Yes Soft to palpation Extremity: COMMON NORMALS: no joint enlargement and no pedal edema Neuro: COMMON NORMALS: moves all extremities SENSORIUM/ORIENTATION: Yes alert Data 11/18/22 04:25 11/18/22 04:25 A&P Assessment and plan (1) Uncontrolled diabetes mellitus: In ER due to agitation received Zyprexa, has been refusing her medications. Pending psychiatric evaluation. Did receive insulin in ER, with improvement in blood glucose, continued sliding scale insulin, discussed with pharmacist, co ntinue her long-acting insulin as well with reduction dose for cross tolerance. Continue to monitor blood glucose. Follow-up psychiatric recommendations, consideration of further admission at geriatric psychiatric facility after correction of hyperglycemia. We will check A1c. Follow-up chemistry, at risk of DKA, HHS. At risk of electrolyte abnormalities. Currently noted sodium 136, potassium 4.3. Bicarb 27, anion gap 19.3. Renal parameters noted unremarkable. Magnesium is 1.9. Follow-up magnesium. Liver parameters unremarkable. UA not suggestive of UTI. Check TSH. (2) Dementia: Possible acute encephalopathy, acute mental status change, agitation on presenta tion, behavioral difficulties reported with refusing medications, pending psychiatric assessment. Severe hyperglycemia though chemistry otherwise unremarkable, UA noted unremarkable. Normal WBC count, afebrile. Urine drug screen unremarkable. Suspected related to dementia. She is unable to provide history. Collateral history obtained from ER staff, documentation, nursing staff. Follow-up psychiatry assessment and recommendations, including consideration of geriatric psychiatric admission once diabetes better controlled. Check TSH. Continue memantine, donepezil Plan Ear lesion: Seems like possible localized infection after a scrape, reassess to see if may end up needing I&D, triple antibiotic ointment for now Incontinent Skin lesions or dental area: Keep dry, moisture barrier. COPD: Not in exacerbation, continue albuterol Fibromyalgia Other medical problems Discussed with ER physician, ER documentation reviewed. Discussed with psychiatry. Discussed with case management. Attestations Medical Necessity Statement*: Place in observation for optimization of control of uncontrolled diabetes with severe hyperglycemia, risk of HHS, DKA, additional assessment with agitation, possible encephalopathy, psychiatric assessment with underlying dementia with behavioral issues, consideration of geriatric psychiatric hospitalization. Diagnoses Uncontrolled diabetes mellitus Dementia F03.90
[2022-11-18 11:07] LABS: Glucose Point of Care 279 mg/dL (70-110)
[2022-11-18] MEDS: insulin lispro 100 unit/1 mL SUBCUT ×3 (11:29→21:06)
[2022-11-18] MEDS: heparin 5,000 unit/mL INJ 1 mL 5000 UNIT SUBCUT ×2 (11:29→22:23)
[2022-11-18] MEDS: sacubitril/valsartan 24-26 mg Tablet 4 EACH PO ×2 (11:30→21:06)
[2022-11-18] MEDS: carvedilol 12.5 mg Tablet PO ×2 (11:30→17:35)
[2022-11-18] MEDS: pregabalin 75 mg Capsule PO ×2 (11:30→21:06)
[2022-11-18 14:36] LABS: Estmated Average Glucose 246; Hemoglobin A1C 10.2 % (4.0-6.0)
[2022-11-18 17:32] LABS: Glucose Point of Care 225 mg/dL (70-110)
[2022-11-18] MEDS: memantine 5 mg tablet 10 MG PO (17:34)
[2022-11-18] MEDS: BuSPIRONE 10 mg Tablet 20 MG PO (17:35)
[2022-11-18] MEDS: FUROsemide 40 mg Tablet PO (17:35)
[2022-11-18] MEDS: acetaminophen 325 mg Tablet 650 MG PO (18:35)
[2022-11-18] MEDS: neomycin-poly-bacitracin oint 28 gm 1 APPLIC TOPICAL (18:35)
[2022-11-18 20:39] LABS: Glucose Point of Care 401 mg/dL (70-110)
[2022-11-18] MEDS: insulin glargine 100 units/1 mL 35 UNIT SUBCUT (21:07)
[2022-11-19] VITALS (8 sets, daily range): BP systolic 140–165; BP diastolic 60–98; PULSE 62–112; RESP 16–18; TEMP 36.4–37; O2SAT 90–98
[2022-11-19 05:06] LABS: Basophils % 0.5 %; Eosinophils # 0.1 10^3/uL (0.0-0.8); Eosinophils % 2.7 %; Hematocrit 43.6 % (37.0-47.0); Hemoglobin 13.9 g/dL (11.5-15.3); Lymphocytes # 1.6 10^3/uL (0.8-4.8); Lymphocytes % 35.7 %; Mean Corpuscular HGB Conc 31.9 g/dL (30.0-36.0); Mean Corpuscular Hemoglobin 25.6 pg (28.0-34.0); Mean Corpuscular Volume 80.3 fl (81-99); Mean Platelet Volume 10.6 fL (7.4-10.4); Monocytes # 0.3 10^3/uL (0.2-0.9); Monocytes % 7.7 %; Neutrophils # 2.35 10^3/uL (1.8-7.7); Neutrophils % 53.2 %; Nucleated Red Blood Cells % 0 %; Platelet Count 223 10^3/cmm (130-400); Red Blood Count 5.43 10^6/uL (4.1-5.3); Red Cell Distribution Width 15.5 % (12.1-15.1); White Blood Count 4.4 10^3/uL (4.0-10.0)
[2022-11-19] MEDS: duloxetine 30 mg Capsule PO (05:07)
[2022-11-19 05:36] LABS: Alanine Aminotransferase 8 U/L (0-33); Albumin Level 3.5 g/dL (3.5-5.2); Alkaline Phosphatase 112 U/L (35-105); Anion Gap 13.7 (5-19); Aspartate Amino Transferase 13 U/L (0-32); Blood Urea Nitrogen 16 mg/dL (8-23); Calcium 9.3 mg/dL (8.5-10.5); Carbon Dioxide 28 mmol/L (22-29); Chloride 106 mmol/L (98-107); Glomerular Filtration Rate 71.1 mL/min (90-130); Glucose 172 mg/dL (65-115); Osmolality Calculated 303 mOsm/kg (285-295); Potassium 3.7 mmol/L (3.5-5.1); Sodium 144 mmol/L (136-145); Thyroid Stimulating Hormone 1.46 uIU/mL (0.27-4.20); Total Bilirubin 0.4 mg/dL (0.15-1.2); Total Protein 6.5 g/dL (6.6-8.7)
[2022-11-19 06:40] LABS: Glucose Point of Care 203 mg/dL (70-110)
[2022-11-19] MEDS: sacubitril/valsartan 24-26 mg Tablet 4 EACH PO ×2 (08:31→20:58)
[2022-11-19] MEDS: insulin lispro 100 unit/1 mL SUBCUT ×4 (08:31→20:59)
[2022-11-19] MEDS: donepezil 5 MG Tablet PO (08:31)
[2022-11-19] MEDS: memantine 5 mg tablet 10 MG PO ×2 (08:31→17:43)
[2022-11-19] MEDS: BuSPIRONE 10 mg Tablet 20 MG PO ×2 (08:32→17:43)
[2022-11-19] MEDS: FUROsemide 40 mg Tablet PO ×2 (08:32→17:43)
[2022-11-19] MEDS: digoxin 250 mcg Tablet PO (08:32)
[2022-11-19] MEDS: carvedilol 12.5 mg Tablet PO ×2 (08:32→17:43)
[2022-11-19] MEDS: pregabalin 75 mg Capsule PO ×2 (08:33→20:57)
[2022-11-19] MEDS: cyanocobalamin 1,000 mcg Tablet 1000 MCG PO (08:33)
[2022-11-19] MEDS: neomycin-poly-bacitracin oint 28 gm 1 APPLIC TOPICAL ×2 (10:17→17:44)
--- NOTE | 2022-11-19 10:21 | PC.CHAP ---
Pastoral Care Encounter/Spiritual Assessment Type of Contact [] Declined pediatric dermatologist visit [] Patient/Family/Request visit [] Outpatient visit [x] Follow-up visit [] Physician referral [] Code/Alert [] Routine visit [] Staff referral [] Actively dying [] Patient sleeping [] Family support [] [] Out of room [] Palliative care [] [] Receiving care in room [] Pre-surgical visit [] Trauma [] Long length of stay [] ICU visit [] Other: Relational/Emotional Strength [] Patient feels connected with others/family/visitors/staff [] Distress [] Loneliness/isolation [] Abandonment Spirituality of Patient [] Person of [place] [] Attends Judaism of their [place] [] Believes in Prayer [] Reads Bible or Latter-Day materials [] There are Spiritual issues to be addressed Carrier Driver Interventions [] Prayer [] Active listening [] Non-anxious presence [] Spiritual/emotional support [] Crisis/trauma care [] Spiritual counseling [] Bereavement support [] Provided bereavement packet [] Provided Bible/devotional materials [] Provided toy/stuffed animal, coloring book to patient or family member [] Provided Communion [] Anointing/Grant [] Salvation [] Completed spiritual assessment [] Other: Impact on Illness or Injury [] Angry [] Fearful [] Anxious [] Often cries [] Exhaustion [] Unable to work [] Unable to attend synagogue [] Unable to walk/stand [] Unable to read [] Unable to drive [] Unable to eat/drink [] Unable to sleep [] Unable to be with family [] Patient intubated [] Other: Summary Follow-up visit asleep Time spent with patient 5 mins
[2022-11-19 10:59] LABS: Glucose Point of Care 404 mg/dL (70-110)
[2022-11-19] MEDS: heparin 5,000 unit/mL INJ 1 mL 5000 UNIT SUBCUT ×2 (11:31→23:11)
--- NOTE | 2022-11-19 11:33 | P.PN_ITS ---
Subjective Subjective: She reports she is doing okay today. Denies pain or discomfort. Vitals/I&O/Wt Last Vital Signs Temp 98.1 F 11/19/22 19:40 Pulse 72 11/19/22 19:44 Resp 18 11/19/22 19:44 BP 144/75 11/19/22 19:40 Pulse Ox 93 11/19/22 19:44 O2 Del Method Room Air 11/19/22 19:44 11/19/22 11/19/22 11/20/22 14:59 22:59 06:59 Intake Total 720 / 720 720 / 1440 Output Total 600 / 600 600 / 1200 600 / 1800 Balance 120 / 120 120 / 240 -600 / -360 Weight last 48 hrs Weight 80.286 kg Physical Exam Narrative: Sitting up in chair Const: COMMON NORMALS: alert; negative for patient oriented x3 GENERAL APPEARANCE: cooperative NUTRITIONAL APPEARANCE: overweight ORIENTATION/CONSCIOUSNESS: Yes awake HENMT: COMMON NORMALS: oropharynx normal OTHER: Right ear nodule of the kiana Neck/C-Spine: COMMON NORMALS: no JVD Resp: COMMON NORMALS: normal respiratory effort and clear to auscultation bilaterally AUSCULTATION: clear to auscultation bilaterally Cardio: COMMON NORMALS: no JVD, regular rhythm, S1 normal heart sound present, S2 normal heart sound present and No murmurs present (Cardio) RHYTHM: regular rhythm HEART SOUNDS: S1 normal heart sound present and S2 normal heart sound present GI: COMMON NORMALS: Normal to inspection, nondistended, normoactive bowel sounds present, Soft to palpation and non-tender PALPATION: Yes Soft to palpation Extremity: COMMON NORMALS: no joint enlargement and no pedal edema Neuro: COMMON NORMALS: moves all extremities; negative for patient oriented x3 SENSORIUM/ORIENTATION: Yes alert Data 11/19/22 04:31 11/19/22 04:31 A&P Assessment and plan (1) Uncontrolled diabetes mellitus: So far she has not exhibited any aggressive or hostile behavior. Has been cooperative. Has been taking her medications. Pending assessment by psychiatry. Blood glucose is better but still elevated on review of Accu-Cheks. Will increase Lantus dose to 37 units. Otherwise no suggestion of DKA, bicarb noted 28, anion gap 13.7. Potassium 3.7. In ER due to agitation received Zyprexa, has been refusing her medications. Pending psychiatric evaluation. Did receive insulin in ER, with improvement in blood glucose, continued sliding scale insulin, discussed with pharmacist, continue her long-acting insulin as well with reduction dose for cross tolerance. Continue to monitor blood glucose. Follow-up psychiatric recommendations, consideration of further admission at geriatric psychiatric facility after correction of hyperglycemia. We will check A1c. Follow-up chemistry, at risk of DKA, HHS. At risk of electrolyte abnormalities. Currently noted sodium 136, potassium 4.3. Bicarb 27, anion gap 19.3. Renal parameters noted unremarkable. Magnesium is 1.9. Follow-up magnesium. Liver parameters unremarkable. UA not suggestive of UTI. Check TSH. (2) Dementia: As above, so far has been noted cooperative. Continue to reorient. Appreciate psychiatry assessment. Discussed with case management, further consideration of discharge plans depending on psychiatry assessment, possible return home as per discussion with versus consideration of geriatric psychiatric admission. Noted normal TSH. Continue memantine, donepezil Plan Ear lesion: Requested ultrasound. Seems like possible localized infection after a scrape, reassess to see if may end up needing I&D, triple antibiotic ointment for now Incontinent Skin lesions or dental area: Keep dry, moisture barrier. COPD: Not in exacerbation, continue albuterol Fibromyalgia Other medical problems Attestations 2 Medical Necessity Statement*: Continue hospitalization for assessment management of uncontrolled diabetes, in a lady with dementia, further disposition planning and consideration of post discharge destination. Coding Level of Care Code Acute Code for Chg Fwd Diagnoses Uncontrolled diabetes mellitus Dementia F03.90
--- NOTE | 2022-11-19 13:27 | US_ITS ---
WS: [id number] ULTRASOUND SOFT TISSUES right ear. HISTORY: R ear nodule vs abscess COMPARISON: None available. TECHNIQUE: 2-D and color Doppler imaging is submitted. Palpable nodule involving the right ear corresponds to a hypoechoic mass with a tract extending super ficial measuring 8 x 7 x 7 mm. There is variable echogenicity. No fluid component. IMPRESSION: Hypoechoic mass involving the right ear is probably a sebaceous cyst. Imaging is nonspecific. No obvi ous abscess.
[2022-11-19 17:02] LABS: Glucose Point of Care 310 mg/dL (70-110)
--- NOTE | 2022-11-19 19:07 | P.NPUHP_ITS ---
Providers/Chief Complaint Admitting Physician: Grant Peña Primary Care Provider: Jen Hill MD Chief Complaint: ams HPI NPU History of Present Illness Juli Humphries is a 67 year old female who presented to the emergency department with the following report: Chief Complaint: Altered Mental Status Stated Complaint: ams Time Seen by Provider: 11/18/22 04:23 History of Present Illness: 67-year-old female with complex medical history including dementia, diabetes, hypertension, COPD and CHF. Patient was brought to emergency room by because of behavioral problem. Transplant patient is refusing all her medication including insulin and heart medication. No recent fall or head injury. Fever, nausea or vomiting. Upon present emergency room patient is awake but very aggressive towards the . Associated symptoms: Deny visual hallucinations, homicidal ideation or suicidal ideation. She was admitted to [facility] for definitive treatment of those issues. Some concerns were present related to behavioral problems, her dementia and whether she had capacity and was able to make medical decisions so a psychiatric consult was requested. Patient presented today reporting that she is feeling much better than when she got here. She is taking the medications as prescribed and reporting her blood sugars have been doing much better. She reports that she had not had any inpatient psychiatric care in the past and that her psychiatric treatment has been a issue more recently. Endorsing she has had some depression and anxiety. She reports that some of the issues she is having is related to conflicts with her family members. She reports that her siblings are worried about her and really wanting her to get more support at home. She reports that her , reporting she has been a few times, has been helpful but that this relationship had been almost over and she had moved onto someone new but then with her health decline her has come back around and they already had some challenging interactions. She reports that she is having some memory difficulties and that she is forgetful and that she does acknowledge the mild dementia that has been documented. She reports however that she does not really want to go to some kind of residential setting. She does not want to go to a custodial or assisted living at this point. She does report however that she would be willing to have in-home services to what ever degree are available. She was able to discuss her conditions including her diabetes and acknowledges that the recommendations of the doctors are appropriate. She acknowledges that she has fallen short in her diabetes management which is why her siblings are wanting her to consider going in somewhere. We discussed the importance of doing what is best for herself and not just what she wants. We reviewed her psychosocial history and she denies any issues germane to this setting. She reports has been a couple times that she has 2 adult children and probably 6 grandchildren. She reports that she has a safe living environment and has some help for activities of daily living. We reviewed her psychiatric medications and she seems comfortable with where the doses are though we did talk about the possibility of considering increasing the Cymbalta. Meds NPU Home Medications Medication Instructions Recorded Confirmed Last Taken Type albuterol sulfate 90 mcg/actuation 2 puff inhalation Q6H PRN 04/20/19 11/18/22 Unknown History aerosol inhaler Shortness Of Breath insulin degludec 200 unit/mL (3 44 unit SUBCUT BEDTIME 04/16/20 11/18/22 11/17/22 History mL) subcutaneous pen (Tresiba FlexTouch U-200 insulin) duloxetine 30 mg capsule,delayed 30 mg PO QAM 04/23/21 11/18/22 11/17/22 History release naproxen sodium 220 mg tablet 220 mg PO Q12H PRN Pain 04/23/21 11/18/22 Unknown History (Young) donepezil 5 mg tablet 5 mg PO DAILY 06/01/22 11/18/22 11/17/22 History mecobalamin (vitamin B12) 1,000 1,000 mcg PO DAILY 06/01/22 11/18/22 11/17/22 History mcg chewable tablet furosemide 40 mg tablet (Lasix) 40 mg PO BID #180 tabs 06/10/22 11/18/22 11/17/22 Rx carvedilol 12.5 mg tablet 12.5 mg PO BID #180 tabs 06/15/22 11/18/22 Unknown Rx digoxin 250 mcg (0.25 mg) tablet 250 mcg PO DAILY #14 tabs 06/16/22 11/18/22 11/17/22 Rx potassium chloride 20 mEq 20 meq PO DAILY #180 tabs 07/23/22 11/18/22 11/17/22 Rx tablet,extended release pregabalin 75 mg capsule (Lyrica) 75 mg PO DIRECTED 07/23/22 11/18/2211/17/23 History sacubitril 97 mg-valsartan 103 mg See Rx Instructions .Route 11/09/22 11/18/22 Unknown Rx tablet (Entresto) .COMPLEX #60 tabs buspirone 10 mg tablet 20 mg PO BID 11/18/22 11/18/22 11/17/22 History cholecalciferol (vitamin D3) 25 25 mcg PO DAILY 11/18/22 11/18/22 11/17/22 History mcg (1,000 unit) capsule (Vitamin D3) insulin lispro 100 unit/mL See Rx Instructions .Route .COMPLEX 11/18/22 11/18/22 11/17/22 History subcutaneous pen memantine 10 mg tablet 10 mg PO BID 11/18/22 11/18/22 11/17/22 History Allergies Allergy/AdvReac Type Severity Reaction Status Date / Time No Known Allergies Allergy Verified 11/18/22 04:24 PFSH NPU PFSH: Medical History Asthma Cardiomyopathy CHF (congestive heart failure) COPD (chronic obstructive pulmonary disease) Emphysema of lung Fibromyalgia Palpitations Surgical History S/P appendectomy S/P breast biopsy S/P cardiac catheterization S/P hysterectomy S/P knee surgery S/P tonsillectomy S/P tubal ligation Family History Father Cancer Prostate Hypertension Diabetes Stroke Mother Heart disease Brother Hypertension Social History Lives independently: No Household members: spouse Marital status: Mental Status Exam MSE Comments: This is an obese white female in a hospital gown with limited grooming but adequate eye contact. No abnormal movements except for mild psychomotor retardation. Cooperative with exam in no acute distress. Speech was decreased rate and volume. Mood described as okay, affect congruent. Thought process o rganized. Thought content: Patient denied suicidal or homicidal ideation, there were no delusions reported or noted, she denied any auditory or visual hallucinations. Attention and concentration appeared intact and memory had some failings but in general appeared somewhat reliable but none were formally tested. She is alert and oriented x3. Insight and judgment were fair impulse control fair. Vitals/I&O/Wt Last Vital Signs Temp 97.6 F 11/19/22 16:00 Pulse 72 11/19/22 16:00 Resp 18 11/19/22 16:00 BP 152/72 11/19/22 16:00 Pulse Ox 90 11/19/22 16:00 O2 Del Method Room Air 11/19/22 16:00 11/19/22 11/19/22 11/19/22 06:59 14:59 22:59 Intake Total 120 / 1240 720 / 720 480 / 1200 Output Total 600 / 600 600 / 1200 Balance 120 / 140 120 / 120 -120 / 0 Weight last 48 hrs Weight 80.286 kg Data NPU 11/20/22 04:26 11/20/22 04:26 A&P Assessment and plan (1) Uncontrolled diabetes mellitus: (2) Dementia: (3) Depression: (4) Adjustment disorder with mixed disturbance of emotions and conduct: Plan This is a 67-year-old white female with a history of anxiety and occasional depression recently she reports but denied for most of her life presenting with mild dementia and reporting cognizance of her memory difficulties to some degree reporting conflicts at home as they manage the progression of her illness currently denying any lethality. 1. Continue current medication. 2. Clear presence of mild dementia the patient was very cogent and able to talk about her different medical conditions, her memory difficulties, family conflicts and dynamics and her desire to remain at home versus have residential assistance. We did talk about the importance of doing within her best interest not necessarily what she wants. She did report that she was open to any assistance that could be provided though identifying some unhealthy dynamics with some of her caregivers/family. So some kind of home health would seem to be a great fit right now to increase her wellness but continue her independence. 3. Please reconsult if there are any additional needs. Attestations NPU Medical Necessity Statement*: N/A. Please see primary team note for medical necessity. Coding Level of Care Code Acute Code for Chg Fwd Diagnoses Uncontrolled diabetes mellitus Dementia F03.90 Depression F32.A Adjustment disorder with mixed disturbance of emotions and conduct F43.25
[2022-11-19 20:47] LABS: Glucose Point of Care 345 mg/dL (70-110)
[2022-11-19] MEDS: insulin glargine 100 units/1 mL 35 UNIT SUBCUT (20:58)
[2022-11-20] VITALS (7 sets, daily range): BP systolic 117–161; BP diastolic 57–85; PULSE 68–87; RESP 16–18; TEMP 36.8–37.4; O2SAT 92–96
[2022-11-20 04:56] LABS: Basophils % 0.2 %; Eosinophils # 0.1 10^3/uL (0.0-0.8); Hemoglobin 13.2 g/dL (11.5-15.3); Lymphocytes # 1.8 10^3/uL (0.8-4.8); Lymphocytes % 43.9 %; Mean Corpuscular HGB Conc 32.2 g/dL (30.0-36.0); Mean Corpuscular Hemoglobin 25.2 pg (28.0-34.0); Mean Corpuscular Volume 78.4 fl (81-99); Mean Platelet Volume 10.4 fL (7.4-10.4); Monocytes # 0.3 10^3/uL (0.2-0.9); Monocytes % 7.7 %; Nucleated Red Blood Cells % 0 %; Platelet Count 205 10^3/cmm (130-400); Red Blood Count 5.23 10^6/uL (4.1-5.3); Red Cell Distribution Width 15.2 % (12.1-15.1)
[2022-11-20 05:16] LABS: Alanine Aminotransferase 10 U/L (0-33); Albumin Level 3.4 g/dL (3.5-5.2); Alkaline Phosphatase 112 U/L (35-105); Anion Gap 13.6 (5-19); Aspartate Amino Transferase 12 U/L (0-32); Blood Urea Nitrogen 16 mg/dL (8-23); Calcium 9.5 mg/dL (8.5-10.5); Carbon Dioxide 27 mmol/L (22-29); Chloride 102 mmol/L (98-107); Globulin 3.1 g/dL (1.3-4.6); Glucose 241 mg/dL (65-115); Osmolality Calculated 297 mOsm/kg (285-295); Potassium 3.6 mmol/L (3.5-5.1); Sodium 139 mmol/L (136-145); Total Bilirubin 0.4 mg/dL (0.15-1.2); Total Protein 6.5 g/dL (6.6-8.7)
[2022-11-20] MEDS: duloxetine 30 mg Capsule PO (05:44)
[2022-11-20 06:45] LABS: Glucose Point of Care 264 mg/dL (70-110)
[2022-11-20] MEDS: memantine 5 mg tablet 10 MG PO (08:56)
[2022-11-20] MEDS: digoxin 250 mcg Tablet PO (08:56)
[2022-11-20] MEDS: carvedilol 12.5 mg Tablet PO (08:56)
[2022-11-20] MEDS: FUROsemide 40 mg Tablet PO (08:56)
[2022-11-20] MEDS: donepezil 5 MG Tablet PO (08:56)
[2022-11-20] MEDS: BuSPIRONE 10 mg Tablet 20 MG PO (08:56)
[2022-11-20] MEDS: cyanocobalamin 1,000 mcg Tablet 1000 MCG PO (08:56)
[2022-11-20] MEDS: insulin lispro 100 unit/1 mL SUBCUT ×2 (08:57→11:49)
[2022-11-20] MEDS: neomycin-poly-bacitracin oint 28 gm 1 APPLIC TOPICAL (08:57)
[2022-11-20] MEDS: sacubitril/valsartan 24-26 mg Tablet 4 EACH PO (08:59)
[2022-11-20] MEDS: pregabalin 75 mg Capsule PO (08:59)
--- NOTE | 2022-11-20 09:02 | PC.CHAP ---
Pastoral Care Encounter/Spiritual Assessment Type of Contact [] Declined pond supervisor visit [] Patient/Family/Request visit [] Outpatient visit [] Follow-up visit [] Physician referral [] Code/Alert [x] Routine visit [] Staff referral [] Actively dying [] Patient sleeping [] Family support [] [] Out of room [] Palliative care [] [] Receiving care in room [] Pre-surgical visit [] Trauma [] Long length of stay [] ICU visit [] Other: Relational/Emotional Strength [x] Patient feels connected with others/family/visitors/staff [] Distress [] Loneliness/isolation [] Abandonment Spirituality of Patient [x] Person of [place] [] Attends Presybeterian of their [place] [x] Believes in Prayer [] Reads Bible or Anabaptism materials [] There are Spiritual issues to be addressed Catheter Finisher And Inspector Interventions [x] Prayer [x] Active listening [] Non-anxious presence [x] Spiritual/emotional support [] Crisis/trauma care [] Spiritual counseling [] Bereavement support [] Provided bereavement packet [] Provided Bible/devotional materials [] Provided toy/stuffed animal, coloring book to patient or family member [] Provided Communion [] Anointing/[place] [] Salvation [x] Completed spiritual assessment [] Other: Impact on Illness or Injury [] Angry [] Fearful [] Anxious [] Often cries [] Exhaustion [] Unable to work [] Unable to attend gnosticism [] Unable to walk/stand [] Unable to read [] Unable to drive [] Unable to eat/drink [] Unable to sleep [] Unable to be with family [] Patient intubated [] Other: Summary Time spent with patient 5 min
[2022-11-20 10:53] LABS: Glucose Point of Care 356 mg/dL (70-110)
[2022-11-20] MEDS: heparin 5,000 unit/mL INJ 1 mL 5000 UNIT SUBCUT (11:49)
--- NOTE | 2022-11-20 18:44 | P.DS_ITS ---
Discharge Providers Date of Admission: 11/18/22 07:38 Date of Discharge: November 20, 2022 Attending Provider at Admission: Grant Peña Attending Provider at Discharge: Grant Peña Primary Care Provider: Jen Hill MD Diagnoses at Discharge Discharge Diagnosis (1) Uncontrolled diabetes mellitus: Status: Acute (2) Dementia: Status: Acute (3) Depression: Status: Acute (4) Adjustment disorder with mixed disturbance of emotions and conduct: Status: Acute Reason for Visit Reason for Visit: ams Hospital Course Hospital Course Sadie 67-year-old with history of insulin-dependent diabetes, mild dementia, hypertension, COPD, CHF, was brought in to the emergency due to behavioral problems at home, refusing to take insulin, other medications, reportedly generally disagreeable and even aggressive, was hospitalized for additional assessment and management on presentation with severe hyperglycemia, was restarted on insulin, with other work-up not suggestive of DKA, with unremarkable electrolytes, UA, kidney function and liver parameters. Normal TSH. Hemoglobin A1c 10.2. While in the hospital she cooperated with all treatment regimens, took insulin well, blood glucose improved. Was assessed by psychiatry. Noted mild dementia, but retaining decisional capacity, still expressing preference to remain home as opposed to going to a facility, open to receiving additional assistance at home, as per discussion of case management arrangements made for home health care with identified some unhealthy dynamics with some of her caregiver/family. Nodule in the right ear, assessed by ultrasound, possible sebaceous cyst, please reassess in office, consider referral to surgery for excision. Some lesions noted in genital area, rash under the breast, given prescription for nystatin, gentle lesions to raise some possibility of hidradenitis suppurativa. Please assess further. Physical Exam Narrative: Sitting up in chair In good spirits. Pleasant, conversant. Const: COMMON NORMALS: alert; negative for patient oriented x3 GENERAL APPEARANCE: cooperative NUTRITIONAL APPEARANCE: overweight ORIENTATION/CONSCIOUSNESS: Yes awake HENMT: COMMON NORMALS: oropharynx normal OTHER: Right ear nodule of the kiana Neck/C-Spine: COMMON NORMALS: no JVD Resp: COMMON NORMALS: normal respiratory effort and clear to auscultation bilaterally AUSCULTATION: clear to auscultation bilaterally Cardio: COMMON NORMALS: no JVD, regular rhythm, S1 normal heart sound present, S2 normal heart sound present and No murmurs present (Cardio) RHYTHM: regular rhythm HEART SOUNDS: S1 normal heart sound present and S2 normal heart sound present GI: COMMON NORMALS: Normal to inspection, nondistended, normoactive bowel sounds present, Soft to palpation and non-tender PALPATION: Yes Soft to palpation Extremity: COMMON NORMALS: no joint enlargement and no pedal edema Neuro: COMMON NORMALS: moves all extremities; negative for patient oriented x3 SENSORIUM/ORIENTATION: Yes alert Discharge Data Studies Completed and Pending Completed Studies During Hospitalization Category Date Time Status US soft tissue head neck [id number] Routine Ultrasound 11/19/22 13:27 Completed Laboratory Results WBC 4.0 10^3/uL (4.0-10.0) 11/20/22 04:26 RBC 5.23 10^6/uL (4.1-5.3) 11/20/22 04:26 Hgb 13.2 g/dL (11.5-15.3) 11/20/22 04:26 Hct 41.0 % (37.0-47.0) 11/20/22 04:26 MCV 78.4 fl (81-99) L 11/20/22 04:26 MCH 25.2 pg (28.0-34.0) L 11/20/22 04:26 MCHC 32.2 g/dL (30.0-36.0) 11/20/22 04:26 RDW 15.2 % (12.1-15.1) H 11/20/22 04:26 Plt Count 205 10^3/cmm (130-400) 11/20/22 04:26 MPV 10.4 fL (7.4-10.4) 11/20/22 04:26 Neut % (Auto) 45.0 % 11/20/22 04:26 Lymph % (Auto) 43.9 % 11/20/22 04:26 [place] % (Auto) 7.7 % 11/20/22 04:26 Eos % (Auto) 3.0 % 11/20/22 04:26 Baso % (Auto) 0.2 % 11/20/22 04:26 Neut # (Auto) 1.80 10^3/uL (1.8-7.7) 11/20/22 04:26 Lymph # (Auto) 1.8 10^3/uL (0.8-4.8) 11/20/22 04:26 [place] # (Auto) 0.3 10^3/uL (0.2-0.9) 11/20/22 04:26 Eos # (Auto) 0.1 10^3/uL (0.0-0.8) 11/20/22 04:26 Baso # (Auto) 0.0 10^3/uL (0.0-0.1) 11/20/22 04:26 Nucleated RBC % (auto) 0 % 11/20/22 04:26 Nucleated RBCs # 0.0 /100WBC 11/20/22 04:26 Sodium 139 mmol/L (136-145) 11/20/22 04:26 Potassium 3.6 mmol/L (3.5-5.1) 11/20/22 04:26 Chloride 102 mmol/L (98-107) 11/20/22 04:26 Carbon Dioxide 27 mmol/L (22-29) 11/20/22 04:26 Anion Gap 13.6 (5-19) 11/20/22 04:26 BUN 16 mg/dL (8-23) 11/20/22 04:26 Creatinine 0.7 mg/dL (0.5-0.9) 11/20/22 04:26 GFR Calculation 83.0 mL/min (90-130) L 11/20/22 04:26 Glucose 241 mg/dL (65-115) H 11/20/22 04:26 POC Glucose 356 mg/dL (70-110) H 11/20/22 10:47 Estimat Average Glucose 246 11/18/22 04:25 Hemoglobin A1c 10.2 % (4.0-6.0) H 11/18/22 04:25 Calculated Osmolality 297 mOsm/kg (285-295) H 11/20/22 04:26 Calcium 9.5 mg/dL (8.5-10.5) 11/20/22 04:26 Magnesium 2.0 mg/dL (1.7-2.3) 11/19/22 04:31 Total Bilirubin 0.4 mg/dL (0.15-1.2) 11/20/22 04:26 AST 12 U/L (0-32) 11/20/22 04:26 ALT 10 U/L (0-33) 11/20/22 04:26 Alkaline Phosphatase 112 U/L (35-105) H 11/20/22 04:26 Total Protein 6.5 g/dL (6.6-8.7) L 11/20/22 04:26 Albumin 3.4 g/dL (3.5-5.2) L 11/20/22 04:26 Globulin 3.1 g/dL (1.3-4.6) 11/20/22 04:26 TSH 1.46 uIU/mL (0.27-4.20) 11/19/22 04:31 Urine Color Yellow (Yellow) 11/18/22 04:40 Urine Appearance Clear (CLEAR) 11/18/22 04:40 Urine pH 6 (5-7) 11/18/22 04:40 Ur Specific [place] 1.010 (1.005-1.030) 11/18/22 04:40 Urine Protein Neg (Negative) 11/18/22 04:40 Urine Glucose (UA) 4+ (Normal) H 11/18/22 04:40 Urine Ketones Negative (Negative) 11/18/22 04:40 Urine Blood Neg (Negative) 11/18/22 04:40 Urine Nitrate Negative (Negative) 11/18/22 04:40 Urine Bilirubin Neg (Negative) 11/18/22 04:40 Urine Urobilinogen Norm mg/dL (Negative) 11/18/22 04:40 Ur Leukocyte Esterase Negative (Negative) 11/18/22 04:40 Urine Opiates Screen Negative ng/mL (Negative) 11/18/22 04:40 Ur Barbiturates Screen Negative ng/mL (Negative) 11/18/22 04:40 Ur Phencyclidine Scrn Negative ng/mL (Negative) 11/18/22 04:40 Ur Amphetamines Screen Negative ng/mL (Negative) 11/18/22 04:40 U Benzodiazepines Scrn Negative ng/mL (Negative) 11/18/22 04:40 Urine Cocaine Screen Negative ng/mL (Negative) 11/18/22 04:40 U Marijuana (THC) Screen Negative ng/mL (Negative) 11/18/22 04:40 Ethyl Alcohol < 10 mg/dL (0-10) 11/18/22 04:25 Vitals Last Vital Signs Temp 98.5 F 11/20/22 14:57 Pulse 85 11/20/22 14:57 Resp 18 11/20/22 14:57 BP 117/57 11/20/22 14:57 Pulse Ox 93 11/20/22 14:57 O2 Del Method Room Air 11/20/22 12:31 Discharge Plan Discharge Patient Disposition: Home Health Service Condition: Stable Prescriptions: New nystatin 100,000 unit/gram ointment 1 applic topical BID Qty: 30 0RF Rx Instructions: Groin, genital ulcers Continued albuterol sulfate 90 mcg/actuation HFA aerosol inhaler 2 puff INHALATION Q6H PRN (Reason: Shortness Of Breath) Tresiba FlexTouch U-200 200 unit/mL (3 mL) insulin pen 44 unit SUBCUT BEDTIME potassium chloride 20 mEq tablet extended release 20 meq PO DAILY Qty: 180 3RF mecobalamin (vitamin B12) 1,000 mcg tablet,chewable 1,000 mcg PO DAILY donepezil 5 mg tablet 5 mg PO DAILY pregabalin [Lyrica] 75 mg capsule 75 mg PO DIRECTED Rx Instructions: 75mg in AM and 150mg in PM furosemide [Lasix] 40 mg tablet 40 mg PO BID Qty: 180 3RF carvedilol 12.5 mg tablet 12.5 mg PO BID Qty: 180 2RF digoxin 250 mcg (0.25 mg) tablet 250 mcg PO DAILY Qty: 14 0RF Entresto 97-103 mg tablet See Rx Instructions .ROUTE .COMPLEX Qty: 60 10RF Dose Instruction: TAKE 1 TABLET BY MOUTH TWICE DAILY Rx Instructions: TAKE 1 TABLET BY MOUTH TWICE DAILY naproxen sodium [Aleve] 220 mg Tablet 220 mg PO Q12H PRN (Reason: Pain) duloxetine 30 mg capsule,delayed release(DR/EC) 30 mg PO QAM Rx Instructions: TAKE WITH 60MG TO =90MG buspirone 10 mg tablet 20 mg PO BID insulin lispro 100 unit/mL insulin pen See Rx Instructions .ROUTE .COMPLEX Rx Instructions: subcutaneously three times daily per sliding scale memantine 10 mg tablet 10 mg PO BID Vitamin D3 25 mcg (1,000 unit) Capsule 25 mcg PO DAILY Discharge Orders: Discharge Order (Routine); Ordered 11/20/22 Ordered By: Grant Peña Referrals: [facility] ([facility]) [Outside] Jen Hill MD [Primary Care Provider] - 11/24/22 10:45 am Discharge Diet: Diabetic Patient Instructions: Nystatin/Triamcinolone (On the skin), Hyponatremia (ED), Benzodiazepine Use Disorder (ED), Dementia (ED), Non-diabetic Hypoglycemia (ED), Hypoglycemia in a Person with Diabetes (ED), Concussion (ED), Alcohol Intoxic ation (ED), Subarachnoid Hemorrhage (GEN), Altered Mental Status (ED), Opioid Safety Activity Restrictions/Additional Instructions: Please continue to measure blood glucose 3 times daily, continue insulin. Avoid missing insulin doses to avoid very high blood glucose. Work with your primary doctor to continue optimize control of diabetes. Please follow up with your primary doctor for cyst on the right ear and consideration of excision of suspected sebacious cyst. Continue wound care for groin and genital wounds, please follow-up with your primary doctor for additional assessment. Discharge Attestations Time Spent in Discharge Care*: greater than 30 min Quality Metrics Clinical Quality Measures [ No reported AMI, CVA or VTE this stay] Coding Level of Care Code 89667 Total time (in minutes) for Discharge: 35 Diagnoses Uncontrolled diabetes mellitus Dementia F03.90 Depression F32.A Adjustment disorder with mixed disturbance of emotions and conduct F43.25
== END 2022-11-20 14:45 | disposition home health service (06) ==
LOC: ER 04:53 → MEDSURG 07:40
PROVIDERS: Admitting Provider Internal Medicine; Emergency Provider Family Medicine; PCP Family Medicine; Visit Provider Internal Medicine
DX: E11.65 Type 2 diabetes mellitus with hyperglycemia (principal); F03.90 Unspecified dementia, unspecified severity, without behavioral disturbance, psychotic disturbance, mood disturbance, and anxiety; F32.A Depression, unspecified; F43.25 Adjustment disorder with mixed disturbance of emotions and conduct; I50.9 Heart failure, unspecified; I42.8 Other cardiomyopathies; J43.9 Emphysema, unspecified; Z79.899 Other long term (current) drug therapy; Z79.4 Long term (current) use of insulin
CPT/HCPCS: 36415; 36416; 76536; 80053; 80306; 80307; 81003; 82962; 83036; 83735; 84443; 85025; 96372; 96374; 96376; 99285; G0378; J1644; J1815; J3490; J7030

== ENCOUNTER → 2022-12-02 08:55 | Outpatient (BNVA) | payer MEDICARE, SELFPAY | PROVIDERS: PCP Family Medicine; Referring Provider Family Medicine; Visit Provider Psychiatry & Neurology Neurology | DX: F03.90 Unspecified dementia, unspecified severity, without behavioral disturbance, psychotic disturbance, mood disturbance, and anxiety (principal); R26.81 Unsteadiness on feet; M54.9 Dorsalgia, unspecified; M54.2 Cervicalgia; R41.3 Other amnesia; R29.898 Other symptoms and signs involving the musculoskeletal system; R55 Syncope and collapse | CPT/HCPCS: 0346U; 82542; 82607; 82746; 99203 ==

== ENCOUNTER 2023-01-14 12:40 | Outpatient (CLI) | payer MEDICARE, SELFPAY ==
--- NOTE | 2023-01-14 12:46 | USCV_ITS ---
Juli Humphries Age: 67 Gender: F : 1955 Exam Date: 01/14/2023 13:07 Ordering Phys: Mary Candelario MD Technologist: Exam Location: [facility] [place] Indication: stroke like symptoms Risk Factors: Previous Vascular Surgery: Right Brachial BP: / Left Brachial BP: / Right Left Velocity (cm/s) Spectral Plaque Velocity (cm/s) Spectral Plaque Syst/Diast Broadening Syst/Diast Broadening 93.70/ 9.90 Prox CCA 67.50 / 12.00 87.10/ 8.80 Mid CCA 70.90 / 14.50 69.50/ 11.00 Distal CCA 79.50 / 15.40 59.80/ 9.20 Prox ICA 49.70 / 8.50 57.80/ 11.80 Mid ICA 66.20 / 15.50 73.60/ 12.50 Distal ICA 71.50 / 14.80 88.20 ECA 97.40 0.79 ICA/CCA 0.90 Antegrade Vertebral Antegrade 54.60/ 11.80 cm/s 80.80/ 12.40 cm/s Bi Subclavian Bi 95.70 145.9 0 FINDINGS Intimal thickening and minimal plaques at the bifurcations and common carotid arteries bilaterally No unstable plaques or lesions were noted. No Doppler flow velocities Normal flow velocities in the subclavian, vertebral, and external carotid arteries CONCLUSIONS Intimal thickening and minimal plaques at the bifurcations and common carotid arteries bilaterally. Normal Doppler velocities and ratios suggesting no significant arterial obstruction, in the above-mentioned arteries Dr Terrence Armstrong MD [facility] (Electronically Signed) Final Date: 15 January 2023 11:20 S
== END 2023-01-14 12:41 | disposition home or self-care (01) ==
LOC: RAD 12:42
PROVIDERS: PCP Family Medicine; Visit Provider Specialist
DX: M54.2 Cervicalgia (principal); R29.898 Other symptoms and signs involving the musculoskeletal system; R29.90 Unspecified symptoms and signs involving the nervous system; E11.40 Type 2 diabetes mellitus with diabetic neuropathy, unspecified; M54.9 Dorsalgia, unspecified
CPT/HCPCS: 93880

== ENCOUNTER 2023-01-27 14:36 | Outpatient (CLI) | payer MEDICARE, SELFPAY ==
--- NOTE | 2023-01-27 15:06 | MR_ITS ---
WS: [id number] MRI HEAD WITHOUT CONTRAST TECHNIQUE: Sagittal T1, T2 axial, T2 axial FLAIR, axial and coronal T1 images, axial susceptibility w eighted imaging, axial diffusion weighted images, and coronal T2 images were obtained. CLINICAL INFORMATION: M54.2 - Cervicalgia COMPARISON: CT head 04/23/2021 FINDINGS: Few small foci of restricted diffusion compatible with acute ischemia largest in the RIGHT parasagitt al parietal lobe at the splenium of the corpus callosum measuring 10 mm. A few additional tiny puncta te foci in the RIGHT frontal lobe near the vertex, LEFT mccloud radiata, LEFT posterior temporal lobe adjacent to the temporal horn. Tiny infarcts in multiple vascular territories suspicious for embolic etiology. Moderate to advanced small vessel changes. Moderate parenchymal volume loss. Small vessel changes in the luis. No hydrocephalus. Normal posterior fossa. Normal vascular flow voids at the skull base. No extra-axial fluid collections. Paranasal sinuses are well aerated. Mucosal thickening RIGHT mastoid t ip. Few tiny punctate foci of hemosiderin in the LEFT posterior frontal and bilateral parietal lobes posteriorly. Tiny punctate focus in the LEFT posterior temporal lobe. Moderate symmetric atrophy temp oral lobes to be capital formations. IMPRESSION: 1. Small acute infarct measuring 10 mm adjacent to the posterior horn RIGHT lateral ventricle at the splenium of the corpus callosum. 2. Several additional tiny punctate foci of acute ischemia in multiple vascular territories suspicio us for embolic etiology. 3. No mass effect or midline shift. 4. Moderate to advanced small vessel changes with moderate parenchymal volume loss. Vessel changes i n the luis. 5. A few punctate chronic foci of hemosiderin described above. Notified Mary Candelario MD at 01/28/2023 9:45 AM.
--- NOTE | 2023-01-27 15:06 | MR_ITS ---
WS: [id number] MRA CAROTID WITHOUT AND WITH GADOLINIUM ENHANCEMENT TECHNIQUE: Axial 2-D TOF and gadolinium bolus images obtained with axial images and axial, sagittal, and coronal 2-D reformatted images. CLINICAL INFORMATION: M54.2 - Cervicalgia COMPARISON: None. FINDINGS: Tortuous cervical ICAs bilaterally. RIGHT: Right common carotid artery is patent. No significant RIGHT ICA stenosis. RIGHT ICA is patent to the skull base. LEFT: LEFT common carotid artery is patent. No significant LEFT ICA stenosis. LEFT ICA is patent to t he skull base. Both vertebral arteries are patent. LEFT dominant vertebral artery. Normal branching aortic arch anatomy. Proximal subclavian arteries are patent. IMPRESSION: 1. Tortuous cervical ICAs bilaterally. No significant ICA stenosis. 2. LEFT dominant vertebral artery. Both vertebral arteries are patent to the basilar junction. 3. Mild intracranial atheromatous disease partially visualized. This could be further evaluated with MRA or CTA.
[2023-01-27] MEDS: gadobenate dimeglumine 20 mL vial IV (17:31)
== END 2023-01-27 14:37 | disposition home or self-care (01) ==
LOC: RAD 14:37
PROVIDERS: PCP Family Medicine; Visit Provider Specialist
DX: I63.9 Cerebral infarction, unspecified (principal); I67.82 Cerebral ischemia; M54.2 Cervicalgia; E11.40 Type 2 diabetes mellitus with diabetic neuropathy, unspecified; M54.9 Dorsalgia, unspecified; R29.898 Other symptoms and signs involving the musculoskeletal system; I77.1 Stricture of artery; I67.2 Cerebral atherosclerosis
CPT/HCPCS: 70548; 70551; A9577

== ENCOUNTER → 2023-02-02 13:05 | Outpatient (BNVA) | payer MEDICARE, SELFPAY | PROVIDERS: PCP Family Medicine; Visit Provider Specialist | DX: I63.89 Other cerebral infarction (principal); G31.83 Neurocognitive disorder with Lewy bodies; F02.80 Dementia in other diseases classified elsewhere, unspecified severity, without behavioral disturbance, psychotic disturbance, mood disturbance, and anxiety; I42.8 Other cardiomyopathies; R45.1 Restlessness and agitation; R26.9 Unspecified abnormalities of gait and mobility; Z72.820 Sleep deprivation | CPT/HCPCS: 99215 ==

== ENCOUNTER → 2023-03-23 12:42 | Outpatient (BNVA) | payer MEDICARE, SELFPAY | PROVIDERS: PCP Family Medicine; Visit Provider Specialist | DX: G31.83 Neurocognitive disorder with Lewy bodies (principal); F02.C11 Dementia in other diseases classified elsewhere, severe, with agitation; I63.89 Other cerebral infarction | CPT/HCPCS: 99214 ==

== ENCOUNTER 2023-06-05 11:13 | Emergency (ER) | payer MEDICARE, SELFPAY ==
[2023-06-05 12:00] VITALS: BP 163/99; PULSE 88; RESP 17; TEMP 37.3; O2SAT 95; BMI 29.2
--- NOTE | 2023-06-05 12:27 | W.ED.PSYCHS ---
HPI - Psych General: Chief Complaint: Psychiatric Symptoms Stated Complaint: sent by everardo richards Time Seen by Provider: 06/05/23 12:20 Source: patient Mode of arrival: ambulatory History of Present Illness: 67-year-old female who presents to the emergency room with complaints of not taking her medications and agitation. Patient has a known history of dementia she even relates this and I went in to see her. She names her but states that he is not her and that he has been taking her medications. She has not taken her medications today. She is a diabetic. She denies any pain or recent illness. MD complaint: altered mental status Onset (ago): hour(s) Duration: constant History of same: Yes Relieving factors: none Exacerbating factors: none Review of Systems Const: Denies: fever(s) or chills Card: Denies: chest pain Resp: Denies: dyspnea GI: Denies: abdominal pain : Denies: dysuria, urinary frequency or urinary urgency Musc: Denies: neck pain or back pain Skin/Breast: Denies: rash PFSH ED PFSH: Medical History Emphysema of lung Asthma Fibromyalgia Cardiomyopathy COPD (chronic obstructive pulmonary disease) Palpitations CHF (congestive heart failure) Surgical History S/P cardiac catheterization S/P hysterectomy S/P appendectomy S/P tubal ligation S/P breast biopsy S/P tonsillectomy S/P knee surgery Family History Father Cancer Prostate Hypertension Diabetes Stroke Mother Heart disease Brother Hypertension Social History Smoking and tobacco/nicotine status: never used tobacco/nicotine Alcohol intake: never Lives independently: No Household members: spouse Marital status: Physical Exam Const: COMMON NORMALS: no acute distress GENERAL APPEARANCE: cooperative and comfortable ORIENTATION/CONSCIOUSNESS: Yes awake HENMT: COMMON NORMALS: normocephalic, atraumatic and hearing grossly normal bilaterally HEAD & SCALP: normocephalic and atraumatic Resp: COMMON NORMALS: normal respiratory effort, No retractions, No use of accessory muscles and clear to auscultation bilaterally AUSCULTATION: clear to auscultation bilaterally Cardio: COMMON NORMALS: regular rate, regular rhythm and No murmurs present (Cardio) RATE: regular rate RHYTHM: regular rhythm GI: COMMON NORMALS: Soft to palpation and No hepatosplenomegaly present AUSCULTATION: Yes normoactive bowel sounds PALPATION: Yes Soft to palpation, No Tenderness to palpation present (GI), No Guarding due to palpation present (GI) and Yes No hepatosplenomegaly present Extremity: COMMON NORMALS: normal to inspection, capillary refill normal, no clubbing, cyanosis or edema, no calf tenderness and no pedal edema Skin: COMMON NORMALS: no rashes or lesions noted GENERAL SKIN EXAM: no rashes or lesions noted Course Vital Signs: Vital signs: Vital Signs Temperature 99.2 F 06/05/23 12:00 Pulse Rate 88 06/05/23 12:00 Respiratory Rate 17 06/05/23 12:00 Blood Pressure 163/99 06/05/23 12:00 Pulse Oximetry 95 06/05/23 12:00 Oxygen Delivery Me thod Room Air 06/05/23 12:00 MDM - Psych Medical Decision Making Patient given medications in the emergency room and she did calm down significantly. We were able to bring her back and she was agreeable to be with him but he for going home with him. Recommend closely following medication schedule for setting up with [facility] for further recommendation for changes. Labs and imaging reviewed on the chart. Medical Records I reviewed the patient's medical records. Lab Data I reviewed the patient's lab results. 06/05/23 12:39 06/05/23 12:39 Laboratory Results WBC 3.07 10^3/uL (3.29-11.43) L 06/05/23 12:39 RBC 4.91 10^6/uL (3.85-5.65) 06/05/23 12:39 Hgb 12.70 g/dL (11.27-16.99) 06/05/23 12:39 Hct 38.9 % (36-47) 06/05/23 12:39 MCV 79.2 fl (85-98) L 06/05/23 12:39 MCH 25.9 pg (27-33) L 06/05/23 12:39 MCHC 32.6 g/dL (30-55) 06/05/23 12:39 RDW 16.2 % (12.1-15.1) H 06/05/23 12:39 Plt Count 209 10^3/cmm (157-399) 06/05/23 12:39 MPV 10.0 fL (7.4-10.4) 06/05/23 12:39 Neut % (Auto) 46.0 % 06/05/23 12:39 Lymph % (Auto) 41.0 % 06/05/23 12:39 [place] % (Auto) 8.8 % 06/05/23 12:39 Eos % (Auto) 3.6 % 06/05/23 12:39 Baso % (Auto) 0.3 % 06/05/23 12:39 Neut # (Auto) 1.41 10^3/uL (1.8-7.7) L 06/05/23 12:39 Lymph # (Auto) 1.3 10^3/uL (0.8-4.8) 06/05/23 12:39 [place] # (Auto) 0.3 10^3/uL (0.2-0.9) 06/05/23 12:39 Eos # (Auto) 0.1 10^3/uL (0.0-0.8) 06/05/23 12:39 Baso # (Auto) 0.0 10^3/uL (0.0-0.1) 06/05/23 12:39 Nucleated RBC % (auto) 0 % 06/05/23 12:39 Nucleated RBCs # 0.0 /100WBC 06/05/23 12:39 Sodium 136 mmol/L (136-145) 06/05/23 12:39 Potassium 3.9 mmol/L (3.5-5.1) 06/05/23 12:39 Chloride 99 mmol/L (98-107) 06/05/23 12:39 Carbon Dioxide 26 mmol/L (22-29) 06/05/23 12:39 Anion Gap 14.9 (5-19) 06/05/23 12:39 BUN 16 mg/dL (8-23) 06/05/23 12:39 Creatinine 0.8 mg/dL (0.5-0.9) 06/05/23 12:39 GFR Calculation 71.1 mL/min (90-130) L 06/05/23 12:39 Glucose 275 mg/dL (65-115) H 06/05/23 12:39 POC Glucose 257 mg/dL (70-110) H 06/05/23 12:35 Calculated Osmolality 293 mOsm/kg (285-295) 06/05/23 12:39 Calcium 9.1 mg/dL (8.5-10.5) 06/05/23 12:39 Total Bilirubin 0.3 mg/dL (0.15-1.2) 06/05/23 12:39 AST 15 U/L (0-32) 06/05/23 12:39 ALT 12 U/L (0-33) 06/05/23 12:39 Alkaline Phosphatase 105 U/L (35-105) 06/05/23 12:39 Total Protein 6.6 g/dL (6.6-8.7) 06/05/23 12:39 Albumin 3.5 g/dL (3.5-5.2) 06/05/23 12:39 Globulin 3.1 g/dL (1.3-4.6) 06/05/23 12:39 Salicylates < 0.3 mg/dL (3-10) L 06/05/23 12:39 Acetaminophen < 5.0 ug/mL (10-30) L 06/05/23 12:39 No radiology studies performed this visit Discharge Plan Discharge Patient Disposition: Home Clinical Impression: Dementia, Uncontrolled diabetes mellitus Condition: Stable Prescriptions: No Action albuterol sulfate 90 mcg/actuation HFA aerosol inhaler 2 puff INHALATION Q6H PRN (Reason: Shortness Of Breath) mecobalamin (vitamin B12) 1,000 mcg tablet,chewable 1,000 mcg PO DAILY duloxetine 60 mg capsule,delayed release(DR/EC) 60 mg PO QAM Rx Instructions: with 30mg to =90mg lorazepam 0.5 mg tablet 0.5 mg PO BID Qty: 180 0RF carvedilol 12.5 mg tablet 12.5 mg PO BID Qty: 180 2RF naproxen sodium [Aleve] 220 mg Tablet 440 mg PO Q12H PRN (Reason: Pain) duloxetine 30 mg capsule,delayed release(DR/EC) 30 mg PO QAM Rx Instructions: TAKE WITH 60MG TO =90MG cholecalciferol (vitamin D3) [Vitamin D3] 25 mcg (1,000 unit) Capsule 25 mcg PO QAM donepezil 10 mg tablet 10 mg PO QAM Rx Instructions: with breakfast digoxin 250 mcg (0.25 mg) tablet 250 mcg PO QAM Aspir-81 81 mg Tablet,Delayed Release (Dr/Ec) 81 mg PO QAM Entresto 97-103 mg tablet 1 tab PO BID furosemide 20 mg tablet 40 mg PO QAM Tresiba FlexTouch U-200 200 unit/mL (3 mL) insulin pen 52 unit SUBCUT BEDTIME Sciatiease Sciatic Nerve Healt 2 tab PO BID quetiapine 25 mg tablet See Rx Instructions .ROUTE .COMPLEX Rx Instructions: 12.5mg po in the am and 25mg po at bedtime potassium chloride 20 mEq tablet extended release 20 meq PO QAM Discharge Orders: Discharge ED (Routine); Ordered 06/05/23 Ordered By: Travon Barron Referrals: Jen Hill MD [Primary Care Provider] - Discharge Diet: Usual diet Discharge Activity: Resume usual activity Patient Instructions: Opioid Safety, Pain Management Activity Restrictions/Additional Instructions: Thank you for choosing [facility] for your healthcare needs today. Please realize this is an emergency room and that we are providing you with a medical screening exam and this may not be complete and all inclusive of all the testing and or work up that you may need to determine your ailment or severity of your illness. It is very important that you follow up as instructed or that you return to the Emergency Department should you have concerns or if your condition changes or worsens in any way. You were seen today for having missed your medicines which caused increased confusion. It is very important to take all of your medications at the time prescribed. Follow-up with your primary care doctor for discussion of further change in medications. Coding Level of Care Code ED President [employer] for Imani Castellanos
[2023-06-05 12:39] LABS: Glucose Point of Care 257 mg/dL (70-110)
[2023-06-05 12:50] LABS: Basophils % 0.3 %; Eosinophils # 0.1 10^3/uL (0.0-0.8); Eosinophils % 3.6 %; Hematocrit 38.9 % (36-47); Lymphocytes # 1.3 10^3/uL (0.8-4.8); Mean Corpuscular HGB Conc 32.6 g/dL (30-55); Mean Corpuscular Hemoglobin 25.9 pg (27-33); Mean Corpuscular Volume 79.2 fl (85-98); Monocytes # 0.3 10^3/uL (0.2-0.9); Monocytes % 8.8 %; Neutrophils # 1.41 10^3/uL (1.8-7.7); Nucleated Red Blood Cells % 0 %; Platelet Count 209 10^3/cmm (157-399); Red Blood Count 4.91 10^6/uL (3.85-5.65); Red Cell Distribution Width 16.2 % (12.1-15.1); White Blood Count 3.07 10^3/uL (3.29-11.43)
[2023-06-05 13:04] LABS: Alanine Aminotransferase 12 U/L (0-33); Albumin Level 3.5 g/dL (3.5-5.2); Alkaline Phosphatase 105 U/L (35-105); Anion Gap 14.9 (5-19); Aspartate Amino Transferase 15 U/L (0-32); Blood Urea Nitrogen 16 mg/dL (8-23); Calcium 9.1 mg/dL (8.5-10.5); Carbon Dioxide 26 mmol/L (22-29); Chloride 99 mmol/L (98-107); Creatinine Clr Calc Pharmacy 57.1183; Globulin 3.1 g/dL (1.3-4.6); Glomerular Filtration Rate 71.1 mL/min (90-130); Glucose 275 mg/dL (65-115); Osmolality Calculated 293 mOsm/kg (285-295); Potassium 3.9 mmol/L (3.5-5.1); Sodium 136 mmol/L (136-145); Total Bilirubin 0.3 mg/dL (0.15-1.2); Total Protein 6.6 g/dL (6.6-8.7)
[2023-06-05 13:16] LABS: Acetaminophen < 5.0 ug/mL (10-30); Salicylate < 0.3 mg/dL (3-10)
[2023-06-05] MEDS: quetiapine 25 mg Tablet 75 MG PO (13:31)
--- NOTE | 2023-06-05 13:59 | PC.PHAR ---
pts verified pts medications-pts states the pt is only using one insulin tresiba flextouch u-200 takes 52 units at hs-notes are made in the pharmacy comments
== END 2023-06-05 16:23 | disposition home or self-care (01) ==
PROVIDERS: Emergency Provider Family Medicine; PCP Family Medicine
DX: F03.90 Unspecified dementia, unspecified severity, without behavioral disturbance, psychotic disturbance, mood disturbance, and anxiety (principal); E11.9 Type 2 diabetes mellitus without complications; Z79.82 Long term (current) use of aspirin; Z79.4 Long term (current) use of insulin; J44.9 Chronic obstructive pulmonary disease, unspecified; I42.9 Cardiomyopathy, unspecified; I50.9 Heart failure, unspecified
CPT/HCPCS: 36415; 36416; 80053; 80307; 82962; 85025; 99284

== ENCOUNTER → 2023-09-14 14:36 | Outpatient (BNVA) | payer MEDICARE, SELFPAY | PROVIDERS: PCP Family Medicine; Visit Provider Specialist | DX: G31.83 Neurocognitive disorder with Lewy bodies (principal); F02.C11 Dementia in other diseases classified elsewhere, severe, with agitation; E11.40 Type 2 diabetes mellitus with diabetic neuropathy, unspecified; I42.8 Other cardiomyopathies; Z79.4 Long term (current) use of insulin | CPT/HCPCS: 99214 ==

== ENCOUNTER 2023-10-01 13:30 | Inpatient (IN) | payer MEDICARE, SELFPAY ==
[2023-10-01] VITALS (13 sets, daily range): BP systolic 134–171; BP diastolic 79–116; PULSE 65–86; RESP 14–28; TEMP 36.4; O2SAT 90–99
--- NOTE | 2023-10-01 13:42 | ECG_ITS ---
[facility] Test Date: 2023-10-01 Pat Name: Juli Humphries Department: Room: Gender: Female Surgeon/President: : 1955 Requested By: Travon Leonard Order Number: [id number] Cleopatra MD: Terrence Armstrong M.D. Measurements Intervals [place] Rate: 67 P: 0 TN: 0 QRS: -42 QRSD: 101 T: 123 QT: 439 QTc: 465 Interpretive Statements Possible sinus rhythm with frequent PVCs LEFT AXIS DEVIATION [QRS AXIS < -30] POSSIBLE ANTERIOR MYOCARDIAL INFARCTION , OF INDETERMINATE AGE [30 ms Q WAVE IN V3/V4, OR R < 0.2 mV IN V4] MODERATE T-WAVE ABNORMALITY, CONSIDER LATERAL ISCHEMIA [-0.1+ mV T-WAVE IN I/aVL/V5/V6] Compared to ECG 04/23/2021 08:23:28 Supraventricular rhythm now present Myocardial infarct finding now present Possible ischemia now present Sinus rhythm no longer present T-wave abnormality still present Electronically Signed On 10-01-2023 20:42:41 CDT by Terrence Armstrong M.D. [email or web address]
[2023-10-01 13:46] LABS: Glucose Point of Care 79 mg/dL (70-110)
--- NOTE | 2023-10-01 13:48 | XR_ITS ---
WS: [id number] Exam: XR chest 1V portable [id number] Date/Time of Exam: 10/01/2023 1:48 PM Reason For Exam: dyspnea/cough Comparison 12/24/2017. There is a 7.4 cm circular mass along the RIGHT heart border. Remaining lung lang are clear. The he art does not appear to be enlarged. Small LEFT basal pleural effusion. There may be some widening of the mediastinum on the RIGHT. Bony structures are intact. Areas of plaque atelectasis in the RIGHT ba se. XR/XR chest 1V portable [id number] IMPRESSION: 1. Circular soft tissue mass along the RIGHT heart border. Differential conside rations would include lobar atelectasis, mass or cardiac aneurysm. 2. Trace LEFT basal pleural effusion. 3. There may be some widening of the mediastinum on the RIGHT. RIGHT basal plaq ue atelectasis. Recommendation: Contrast CT scanning of the chest is recommended for further wo rk-up.
--- NOTE | 2023-10-01 13:52 | ED_ITS ---
HPI - General Adult 2 General: Chief complaint: General Medical Stated complaint: hypoglycemia, low hr Time Seen by Provider: 10/01/23 13:38 Source: patient Mode of arrival: ambulatory History of Present Illness: 67-year-old female presents emergency ro om via EMS. Patient has some mild dementia lives at home her was trying to feed her around 10:00 this morning and she seemed to go unresponsive. When EMS found her she had a blood sugar in the 50s. Recently the says that she has not been eating as well she is on Lantus as well as shorting acting acting insulins they cut out her short acting insulins and they are only doing 52 units at at bedtime of Lantus. She did get the full 52 units last night at bedtime. She did not eat till around 10:00 this morning. She did not had any chest pain but the reports she did have little bit of cough. No abdominal discomfort patient relates she has had a little bit of discomfort with urination. EMS reported they had treated her hypoglycemia and got blood sugars at 90 and then 117 shortly before arrival. On arrival here blood sugar decreased to 79. Onset (ago): minute(s) Associated symptoms: Deny chest pain, dyspnea or rash Review of Systems 2 Const: Denies: fever(s) or chills Card: Denies: chest pain Resp: Denies: dyspnea GI: Denies: abdominal pain : Denies: dysuria, urinary frequency or urinary urgency Musc: Denies: neck pain or back pain Skin/Breast: Denies: rash PFSH ED 2 PFSH: Medical History (Updated 10/01/23 @ 16:34 by Travon Barron DO) Acute ischemic multifocal multiple vascular territories stroke Uses LifeVest defibrillator Emphysema of lung Asthma Fibromyalgia Cardiomyopathy COPD (chronic obstructive pulmonary disease) Palpitations CHF (congestive heart failure) Surgical History S/P cardiac catheterization S/P hysterectomy S/P appendectomy S/P tubal ligation S/P breast biopsy S/P tonsillectomy S/P knee surgery Family History Father Cancer Prostate Hypertension Diabetes Stroke Mother Heart disease Brother Hypertension Social History Smoking and tobacco/nicotine status: never used tobacco/nicotine Alcohol intake: never Lives independently: No Household members: spouse Marital status: Physical Exam 2 Const: COMMON NORMALS: no acute distress GENERAL APPEARANCE: cooperative and comfortable ORIENTATION/CONSCIOUSNESS: Yes awake, Yes oriented to person, Yes oriented to place and Yes oriented to time HENMT: COMMON NORMALS: normocephalic, atraumatic and hearing grossly normal bilaterally HEAD & SCALP: normocephalic and atraumatic Resp: COMMON NORMALS: normal respiratory effort, No retractions, No use of accessory muscles and clear to auscultation bilaterally AUSCULTATION: clear to auscultation bilaterally Cardio: COMMON NORMALS: regular rate, regular rhythm and No murmurs present (Cardio) RATE: regular rate RHYTHM: regular rhythm GI: COMMON NORMALS: Soft to palpation and No hepatosplenomegaly present A USCULTATION: Yes normoactive bowel sounds PALPATION: Yes Soft to palpation, No Tenderness to palpation present (GI), No Guarding due to palpation present (GI) and Yes No hepatosplenomegaly present Extremity: COMMON NORMALS: normal to inspection, capillary refill normal, no clubbing, cyanosis or edema, no calf tenderness and no pedal edema Neuro: SENSORIUM/ORIENTATION: Yes oriented to person, Yes oriented to place and Yes oriented to time Skin: COMMON NORMALS: no rashes or lesions noted GENERAL SKIN EXAM: no rashes or lesions noted Course 2 Vital Signs: Vital signs: Vital Signs Temperature 97.6 F 10/01/23 13:49 Pulse Rate 67 10/01/23 14:30 Respiratory Rate 18 10/01/23 13:49 Blood Pressure 134/93 10/01/23 14:30 Pulse Oximetry 95 10/01/23 14:30 Oxygen Delivery Me thod Room Air 10/01/23 13:49 MDM - General Adult Medical Decision Making Blood sugar well-maintained on the drip of D50 at 30 mL. Will admit placed on observation discussed with hospitalist orders written. Chest x-ray showed a right hilar mass we will get a CT chest abdomen pelvis she also has abnormal liver functions which she has not had in the past Medical Records I reviewed the patient's medical records. Lab Data I reviewed the patient's lab results. 10/01/23 14:26 10/01/23 14:26 Radiology Impressions Chest X-Ray 10/01/23 13:48 IMPRESSION: 1. Circular soft tissue mass along the RIGHT heart border. Differential considerations would include lobar atelectasis, mass or cardiac aneurysm. 2. Trace LEFT basal pleural effusion. 3. There may be some widening of the mediastinum on the RIGHT. RIGHT basal plaque atelectasis. Recommendation: Contrast CT scanning of the chest is recommended for further work-up. Laboratory Results WBC 4.04 10^3/uL (3.29-11.43) 10/01/23 14:26 RBC 5.50 10^6/uL (3.85-5.65) 10/01/23 14:26 Hgb 13.90 g/dL (11.27-16.99) 10/01/23 14:26 Hct 45.2 % (36-47) 10/01/23 14:26 MCV 82.2 fl (85-98) L 10/01/23 14:26 MCH 25.3 pg (27-33) L 10/01/23 14:26 MCHC 30.8 g/dL (30-55) 10/01/23 14:26 RDW 15.9 % (12.1-15.1) H 10/01/23 14:26 Plt Count 239 10^3/cmm (157-399) 10/01/23 14:26 MPV 10.5 fL (7.4-10.4) H 10/01/23 14: Neut % (Auto) 76.3 % 10/01/23 14:26 Lymph % (Auto) 19.1 % 10/01/23 14:26 [place] % (Auto) 4.2 % 10/01/23 14: Eos % (Auto) 0.2 % 10/01/23 14: Baso % (Auto) 0.0 % 10/01/23 14: Neut # (Auto) 3.08 10^3/uL (1.8-7.7) 10/01/23 14: Lymph # (Auto) 0.8 10^3/uL (0.8-4.8) 10/01/23 14: [place] # (Auto) 0.2 10^3/uL (0.2-0.9) 10/01/23 14:26 Eos # (Auto) 0.0 10^3/uL (0.0-0.8) 10/01/23 14:26 Baso # (Auto) 0.0 10^3/uL (0.0-0.1) 10/01/23 14:26 Nucleated RBC % (auto) 0 % 10/01/23 14:26 Nucleated RBCs # 0.0 /100WBC 10/01/23 14:26 Sodium 144 mmol/L (136-145) 10/01/23 14:26 Potassium 4.1 mmol/L (3.5-5.1) 10/01/23 14:26 Chloride 105 mmol/L (98-107) 10/01/23 14:26 Carbon Dioxide 30 mmol/L (22-29) H 10/01/23 14:26 Anion Gap 13.1 (5-19) 10/01/23 14:26 BUN 19 mg/dL (8-23) 10/01/23 14:26 Creatinine 0.8 mg/dL (0.5-0.9) 10/01/23 14:26 GFR Calculation 71.1 mL/min (90-130) L 10/01/23 14:26 Glucose 76 mg/dL (65-115) 10/01/23 14:26 POC Glucose 74 mg/dL (70-110) 10/01/23 14:54 Calculated Osmolality 299 mOsm/kg (285-295) H 10/01/23 14:26 Calcium 9.2 mg/dL (8.5-10.5) 10/01/23 14:26 Magnesium 2.2 mg/dL (1.7-2.3) 10/01/23 14:26 Total Bilirubin 0.5 mg/dL (0.15-1.2) 10/01/23 14:26 AST 60 U/L (0-32) H 10/01/23 14:26 ALT 55 U/L (0-33) H 10/01/23 14:26 Alkaline Phosphatase 273 U/L (35-105) H 10/01/23 14:26 Troponin T Baseline 31 ng/L (0-10) H 10/01/23 14:26 Total Protein 6.2 g/dL (6.6-8.7) L 10/01/23 14:26 Albumin 3.7 g/dL (3.5-5.2) 10/01/23 14:26 Globulin 2.5 g/dL (1.3-4.6) 10/01/23 14:26 All radiology interpretation(s) finalized by discharge Discharge Plan Discharge Patient Disposition: Placed in Observation Clinical Impression: Hypoglycemia, Lewy body dementia Condition: Stable Prescriptions: No Action mecobalamin (vitamin B12) 1,000 mcg tablet,chewable 1,000 mcg PO DAILY duloxetine 60 mg capsule,delayed release(DR/EC) 60 mg PO QAM Rx Instructions: ALONG with 30mg to =90mg lorazepam 0.5 mg tablet 1 mg PO BID Qty: 180 2RF Rx Instructions: 1-2 every 6 hours as needed for anxiety carvedilol 12.5 mg tablet 12.5 mg PO BID Qty: 180 2RF naproxen sodium [Aleve] 220 mg Tablet 440 mg PO Q12H PRN (Reason: Pain) duloxetine 30 mg capsule,delayed release(DR/EC) 30 mg PO QAM Rx Instructions: TAKE WITH 60MG TO =90MG cholecalciferol (vitamin D3) [Vitamin D3] 25 mcg (1,000 unit) Capsule 25 mcg PO QAM aspirin [Aspir-81] 81 mg Tablet,Delayed Release (Dr/Ec) 81 mg PO QAM Entresto 97-103 mg tablet 1 tab PO BID furosemide 20 mg tablet 40 mg PO QAM insulin degludec [Tresiba FlexTouch U-200] 200 unit/mL (3 mL) insulin pen 52 unit SUBCUT BEDTIME potassium chloride 20 mEq tablet extended release 20 meq PO QAM quetiapine 50 mg tablet 50 mg PO BEDTIME Rx Instructions: 1/2 to 2 tablets AT BEDTIME Referrals: Jen Hill MD [Primary Care Provider] - Patient Instructions: Opioid Safety, Pain Management Coding Level of Care Code ED Hard Candy Spinner for Imani Castellanos
[2023-10-01] MEDS: dextrose 10% 1,000 ML 30 ML IV (14:10)
[2023-10-01 14:34] LABS: Eosinophils % 0.2 %; Hematocrit 45.2 % (36-47); Lymphocytes # 0.8 10^3/uL (0.8-4.8); Lymphocytes % 19.1 %; Mean Corpuscular HGB Conc 30.8 g/dL (30-55); Mean Corpuscular Hemoglobin 25.3 pg (27-33); Mean Corpuscular Volume 82.2 fl (85-98); Mean Platelet Volume 10.5 fL (7.4-10.4); Monocytes # 0.2 10^3/uL (0.2-0.9); Monocytes % 4.2 %; Neutrophils # 3.08 10^3/uL (1.8-7.7); Neutrophils % 76.3 %; Nucleated Red Blood Cells % 0 %; Platelet Count 239 10^3/cmm (157-399); Red Cell Distribution Width 15.9 % (12.1-15.1); White Blood Count 4.04 10^3/uL (3.29-11.43)
[2023-10-01 14:53] LABS: Troponin(5th) Baseline 31 ng/L (0-10)
[2023-10-01 14:55] LABS: Alanine Aminotransferase 55 U/L (0-33); Albumin Level 3.7 g/dL (3.5-5.2); Alkaline Phosphatase 273 U/L (35-105); Anion Gap 13.1 (5-19); Aspartate Amino Transferase 60 U/L (0-32); Blood Urea Nitrogen 19 mg/dL (8-23); Calcium 9.2 mg/dL (8.5-10.5); Carbon Dioxide 30 mmol/L (22-29); Chloride 105 mmol/L (98-107); Globulin 2.5 g/dL (1.3-4.6); Glomerular Filtration Rate 71.1 mL/min (90-130); Glucose 76 mg/dL (65-115); Magnesium 2.2 mg/dL (1.7-2.3); Osmolality Calculated 299 mOsm/kg (285-295); Potassium 4.1 mmol/L (3.5-5.1); Sodium 144 mmol/L (136-145); Total Bilirubin 0.5 mg/dL (0.15-1.2); Total Protein 6.2 g/dL (6.6-8.7)
[2023-10-01 15:02] LABS: Glucose Point of Care 74 mg/dL (70-110)
--- NOTE | 2023-10-01 15:29 | CTR_ITS ---
PROCEDURE INFORMATION: Exam: CT Chest With Contrast; Diagnostic Exam date and time: 10/01/2023 3:42 PM Age: 67 years old Clinical indication: Abnormal findings; Abnormal radiologic finding of the abdomen; Radiologic exam and body structure: Chest x-ray; Abnormal radiologic exam of lung or chest; Prior surgery; Surgery date: 6+ months; Surgery type: Tubal, hysterectomy, appendectomy, breast bx; Additional info: Abnormal chest x-ray, elevated liver enzymes TECHNIQUE: Imaging protocol: Diagnostic computed tomography of the chest with contrast. Radiation optimization: All CT scans at this facility use at least one of these dose optimization techniques: automated exposure control; mA and/or kV adjustment per patient size (includes targeted exams where dose is matched to clinical indication); or iterative reconstruction. Contrast material: [id number]; Contrast volume: 100 ml; Contrast route: INTRAVENOUS (IV); COMPARISON: CR XR chest 1V portable [id number] 10/01/2023 2:39 PM RADIATION DOSE METRICS: Total DLP (mGy-cm): 1216.73 FINDINGS: Thyroid: No significant thyroid pathology. Lungs: Evaluation of the lungs limited by respiratory degradation. Areas of ground-glass and streaky opacity in the lung bases are likely at least partially secondary 2 incomplete pulmonary expansion and breathing artifact. Pleural spaces: Small bilateral pleural effusions. Heart: Cardiomegaly. Coronary arteries: Coronary artery calcifications. Lymph nodes: No evidence of lymphadenopathy. Borderline sized left axillary nodes are seen. Vasculature: Mild pulmonary vascular congestion. No evidence of thoracic aortic aneurysm. Diaphragm: Small hiatal hernia. Bones/joints: Mild degenerative change present in the spine. Soft tissues: Mild anasarca. PROCEDURE INFORMATION: Exam: CT Abdomen And Pelvis With Contrast Exam date and time: 10/01/2023 3:42 PM Age: 67 years old Clinical indication: Abnormal findings; Abnormal radiologic finding of the abdomen; Radiologic exam and body structure: Chest x-ray; Abnormal radiologic exam of lung or chest; Prior surgery; Surgery date: 6+ months; Surgery type: Tubal, hysterectomy, appendectomy, breast bx; Additional info: Abnormal chest x-ray, elevated liver enzymes TECHNIQUE: Imaging protocol: Computed tomography of the abdomen and pelvis with contrast. Radiation optimization: All CT scans at this facility use at least one of these dose optimization techniques: automated exposure control; mA and/or kV adjustment per patient size (includes targeted exams where dose is matched to clinical indication); or iterative reconstruction. Contrast material: [id number]; Contrast volume: 100 ml; Contrast route: INTRAVENOUS (IV); COMPARISON: CR XR chest 1V portable [id number] 10/01/2023 2:39 PM RADIATION DOSE METRICS: Total DLP (mGy-cm): 1216.73 FINDINGS: Lungs: Visualized lung bases are free of significant pathology. Liver: See Vasculature finding. Gallbladder and biliary ducts: No significant gallbladder pathology. No biliary dilatation. Pancreas: No significant pancreatic pathology. Spleen: Spleen is enlarged measuring up to 17.3 cm. Adrenal glands: No significant adrenal pathology. Kidneys and ureters: No significant renal pathology. Stomach and bowel: Colonic diverticulosis without evidence of focal inflammatory change. Large amount of colonic stool. Appendix: History of prior appendectomy. Intraperitoneal space: No ascites. Vasculature: Distended IVC with the appearance of the liver consistent with passive venous congestion. Lymph nodes: No evidence of lymphadenopathy. Urinary bladder: Urinary bladder wall is thickened Reproductive: Prior hysterectomy. No significant adnexal pathology. Bones/joints: Mild degenerative change present in the spine. Soft tissues: Small fat containing umbilical hernia. Small fat containing left paramedian infraumbilical hernia also noted CT/CT chest abdpel w/*[id number] IMPRESSION: 1. Findings suggesting mild congestive failure or fluid overload. 2. Borderline left axillary lymph nodes. IMPRESSION: 1. Large amount of colonic stool with diverticulosis no acute inflammatory change. 2. Splenomegaly 3. Urinary bladder wall thickening possibly related to inflammatory change, neurogenic disease or other pathology. Clinical correlation recommended 4. Mild anasarca with passive venous congestion of the liver.
--- NOTE | 2023-10-01 15:38 | P.HP_ITS ---
Providers/Chief Complaint 2 Primary Care Provider: Jen Hill MD Chief Complaint: hypoglycemia, low hr History of Present Illness Juli Humphries is a 67 year old female with past medical history of Lewy body dementia, acute ischemic multiple vascular strokes, memory loss, nonischemic cardiomyopathy with last known EF 30%, type 2 diabetes mellitus, hypertension who has been having decreased oral intake at home as per the patient's primary caregiver/. As per the report from ER physician by himself because of poor renal intake has been cutting down on her insulin requirement and is currently only on Lantus of 50 units nightly which she took last night and short acting insulin has been stopped. On visit to the ER patient was laying comfortably in bed, confused seems to be at baseline. No family members present at bedside. On calling was not able to get in touch as well. As per the EMS report, when EMS arrived her blood sugars were in 50s for which she was given D50 and on route to the ER her blood sugars were in 117s. In the ER she was needed to be placed on D10 drip to maintain her blood sugars at 70. Review of Systems 2 General: Reports: ROS unobtainable due to mental status Medications/Allergies Home Medications Medication Instructions Recorded Confirmed Last Taken Type duloxetine 30 mg capsule,delayed 30 mg PO QAM 04/23/21 10/01/23 09/30/23 History release naproxen sodium 220 mg tablet 440 mg PO Q12H PRN Pain 04/23/21 10/01/23 06/05/23 History (Aleve) mecobalamin (vitamin B12) 1,000 1,000 mcg PO DAILY 06/01/22 10/01/23 09/30/23 History mcg chewable tablet cholecalciferol (vitamin D3) 25 25 mcg PO QAM 11/18/22 10/01/23 09/30/23 History mcg (1,000 unit) capsule (Vitamin D3) carvedilol 12.5 mg tablet 12.5 mg PO BID #180 tabs 03/02/23 10/01/23 09/30/23 Rx duloxetine 60 mg capsule,delayed 60 mg PO QAM 03/23/23 10/01/23 09/30/23 History release aspirin 81 mg tablet,delayed 81 mg PO QAM 06/05/23 10/01/23 09/30/23 History release furosemide 20 mg tablet 40 mg PO QAM 06/05/23 10/01/23 09/30/23 History insulin degludec 200 unit/mL (3 52 unit SUBCUT BEDTIME 06/05/23 10/01/23 09/30/23 History mL) subcutaneous pen (Tresiba FlexTouch U-200 insulin) potassium chloride 20 mEq 20 meq PO QAM 06/05/23 10/01/23 09/30/23 History tablet,extended release sacubitril 97 mg-valsartan 103 mg 1 tab PO BID 06/05/23 10/01/23 09/30/23 History tablet (Entresto) lorazepam 0.5 mg tablet 1 mg (2 x 0.5 mg) PO BID anxiety 09/14/23 10/01/23 09/30/23 Rx #180 tabs quetiapine 50 mg tablet 50 mg PO BEDTIME 10/01/23 10/01/23 09/30/23 History Allergies Allergy/AdvReac Type Severity Reaction Status Date / Time No Known Allergies Allergy Verified 09/14/23 14:38 PFSH Acute 2 PFSH: Medical History (Updated 10/01/23 @ 15:51 by George Muñoz MD) Acute ischemic multifocal multiple vascular territories stroke Uses LifeVest defibrillator Emphysema of lung Asthma Fibromyalgia Cardiomyopathy COPD (chronic obstructive pulmonary disease) Palpitations CHF (congestive heart failure) Surgical History S/P cardiac catheterization S/P hysterectomy S/P appendectomy S/P tubal ligation S/P breast biopsy S/P tonsillectomy S/P knee surgery Family History Father Cancer Prostate Hypertension Diabetes Stroke Mother Heart disease Brother Hypertension Social History Smoking and tobacco/nicotine status: never used tobacco/nicotine Alcohol intake: never Lives independently: No Household members: spouse Marital status: Vitals/I&O/Wt Last Vital Signs Temp 97.6 F 10/01/23 13:49 Pulse 67 10/01/23 14:30 Resp 18 10/01/23 13:49 BP 134/93 10/01/23 14:30 Pulse Ox 95 10/01/23 14:30 O2 Del Method Room Air 10/01/23 13:49 Physical Exam 2 Narrative: General: No acute distress, Awake but alert x1 HEENT: PERRLA, pupils bilaterally equal and reactive Chest: Normal vesicular breath sounds, no added sounds, equal good air entry bilaterally CVS: S1-S2 regula, few missed beats, soft PSM at apex, no tachycardia, no gallops, no rubs Abdomen: Soft, nontender, no organomegaly, bowel sounds present Neuro: No focal deficits, no facial deformity, power 5/5 in all limbs Data 10/01/23 14:26 10/01/23 14:26 A&P Assessment and plan (1) Hypoglycemia: In setting of uncontrolled type 2 diabetes mellitus at baseline with last known A1c of 10.2 back in November 2022. Getting complicated by poor oral intake in setting of Lewy body dementia. had already stopped slow acting insulin. But was still given Lantus 50 units nightly. Last received yesterday. Repeat A1c. Continue with D10 fluid. Monitor for fluid overload. Hypoglycemia protocol. (2) Transaminitis: Unknown cause. Patient does have history of CHF. Cannot rule out congestive hepatomegaly. Check hepatitis panel, HIV. Elevated alkaline phosphatase more than baseline. Chest x-ray concerning for possible soft tissue mass at right heart border. Plan for CT with contrast chest abdomen pelvis for further evaluation of the mass and transaminitis. (3) Uncontrolled diabetes mellitus: (4) Lewy body dementia: Qualifiers: Dementia behavioral or psychological symptom: with agitation Dementia severity: severe Qualified Code(s): G31.83 - Neurocognitive disorder with Lewy bodies; F02.C11 - Dementia in other diseases classified elsewhere, severe, with agitation (5) Acute ischemic multifocal multiple vascular territories stroke: As seen on MRI done in December 2022. Last echocardiogram done in June 2022 showed an EF of 30% with grade 1 diastolic dysfunction. As per review of old neurology documentation it was decided not to start anticoagulation because of her episodes of agitation. Patient is at baseline on hospice because of severe dementia and cardiomyopathy. Will not workup any further for now. (6) Non-ischemic cardiomyopathy: Continue with home dose of carvedilol and Entresto. No concerns for fluid overload for now. (7) Benign essential HTN: Goal blood pressure less than 140/90 mmHg (8) COPD (chronic obstructive pulmonary disease): No active exacerbation. DuoNeb as needed. (9) Gait instability: Attestations 2 Medical Necessity Statement*: Admission for less than 2 midnights for management of hypoglycemia in setting of uncontrolled type 2 diabetes mellitus because of poor oral intake in setting of Lewy body dementia in a patient with baseline nonischemic cardiomyopathy Diagnoses Hypoglycemia E16.2 Transaminitis R74.01 Uncontrolled diabetes mellitus Severe Lewy body dementia with agitation G31.83; F02.C11 Dementia behavioral or psychological symptom: with agitation Dementia severity: severe Acute ischemic multifocal multiple vascular territories stroke I63.89 Non-ischemic cardiomyopathy I42.8 Benign essential HTN I10 COPD (chronic obstructive pulmonary disease) J44.9 Gait instability R26.81
[2023-10-01] MEDS: iohexol 350 mg/mL 500 mL Btl (per mL) IV (15:44)
--- NOTE | 2023-10-01 15:53 | ECG_ITS ---
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 Measurements Intervals [place] Rate: 80 P: -38 [place]: 121 QRS: -39 QRSD: 105 T: 41 QT: 399 QTc: 462 Interpretive Statements SINUS RHYTHM WITH OCCASIONAL VENTRICULAR PREMATURE COMPLEXES LEFT AXIS DEVIATION [QRS AXIS < -30] PATTERN CONSISTENT WITH PULMONARY DISEASE NONSPECIFIC ST & T-WAVE ABNORMALITY Compared to ECG 10/01/2023 13:42:28 Ventricular premature complex(es) now present Supraventricular rhythm no longer present Myocardial infarct finding no longer present Possible ischemia no longer present T-wave abnormality still present Electronically Signed On 10-02-2023 19:14:39 CDT by Terrence Armstrong M.D. [id number]
[2023-10-01 16:49] LABS: Troponin 5 2HR 32.36 ng/L (0-10); Troponin 5 2HR Delta 1.36 ABS# (0-10)
[2023-10-01 16:58] LABS: Urine Appearance Slightly Cloudy (CLEAR); Urine Color Yellow (Yellow)
[2023-10-01 16:59] LABS: Add Urine Microscopic? YES; Bilirubin Urine Neg (Negative); Blood Urine 2+ (Negative); Glucose Urine UA Norm (Normal); Ketones Urine Negative (Negative); Leukocyte Esterase Urine 1+ (Negative); Nitrate Urine Positive (Negative); Protein Urine 1+ (Negative); Urobilinogen Urine Norm (Negative); pH Urine 5 (5-7)
[2023-10-01 17:00] LABS: RBC Urine 0-4 /hpf (0-2)
[2023-10-01 17:01] LABS: Add Urine Culture? Yes; Bacteria Urine 4+ /hpf; Squamous Epithelial Cell Urine 0-4 /hpf (0-5); WBC Urine 25-40 /hpf (0-5)
[2023-10-01 17:18] LABS: Glucose Point of Care 35 mg/dL (70-110)
[2023-10-01] MEDS: dextrose 10% 250 ML 1000 ML IV (17:22)
[2023-10-01 17:47] LABS: Glucose Point of Care 40 mg/dL (70-110)
[2023-10-01] MEDS: glucagon 1 mg/mL KIT 1 mL IVP (17:57)
[2023-10-01 18:09] LABS: Glucose Point of Care 38 mg/dL (70-110)
--- NOTE | 2023-10-01 18:26 | PC.NURSE ---
Glucose via Fingerstick @1820: 81
[2023-10-01 18:27] LABS: Glucose Point of Care 81 mg/dL (70-110)
[2023-10-01] MEDS: carvedilol 12.5 mg Tablet PO (18:45)
[2023-10-01] MEDS: LORazepam 0.5 mg Tablet 1 MG PO (20:42)
[2023-10-01] MEDS: quetiapine 25 mg Tablet 50 MG PO (20:42)
[2023-10-01 20:44] LABS: Glucose Point of Care 134 mg/dL (70-110)
[2023-10-01] MEDS: heparin 5,000 unit/mL INJ 1 mL 5000 UNIT SUBCUT (20:44)
[2023-10-01 20:57] LABS: Iron 27 ug/dL (37-145); Percent Saturation 9.4 % (20-50); Total Iron Binding Capacity 285 mcg/dl; Unsaturated Iron Binding 258 ug/dL (112-347)
[2023-10-01 21:03] LABS: Troponin 5 6HR 37.35 ng/L (0-10); Troponin 5 6HR Delta 6.35 ng/L (0-12)
--- NOTE | 2023-10-01 21:16 | ECG_ITS ---
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 Measurements Intervals [place] Rate: 85 P: -37 [place]: 146 QRS: -46 QRSD: 113 T: 0 QT: 382 QTc: 456 Interpretive Statements SINUS RHYTHM LEFT AXIS DEVIATION [QRS AXIS < -30] PATTERN CONSISTENT WITH PULMONARY DISEASE INCOMPLETE RIGHT BUNDLE BRANCH BLOCK [90+ ms QRS DURATION, TERMINAL R IN V1/V2, 40+ ms S IN I/aVL/V4/V5/V6] NONSPECIFIC ST & T-WAVE ABNORMALITY Compared to ECG 10/01/2023 15:53:29 Incomplete right bundle-branch block now present Ventricular premature complex(es) no longer present T-wave abnormality still present Electronically Signed On 10-02-2023 19:19:39 CDT by Terrence Armstrong M.D. [id number]
[2023-10-01 21:19] LABS: Cortisol Random 24.39 ug/dL (2.47-19.5)
[2023-10-01 21:21] LABS: Vitamin B12 > 2000 pg/mL (232-1245)
[2023-10-01] MEDS: haloperidol inj 5 mg/mL INJ 1 mL 3 MG IM (21:55)
[2023-10-02] VITALS (7 sets, daily range): BP systolic 107–130; BP diastolic 66–75; PULSE 80–87; RESP 17–20; TEMP 36.4–37.3; O2SAT 94–98
[2023-10-02 00:45] LABS: Glucose Point of Care 85 mg/dL (70-110)
[2023-10-02 05:11] LABS: Glucose Point of Care 42 mg/dL (70-110)
[2023-10-02] MEDS: dextrose 10% 125 ML 750 ML IV (05:12)
[2023-10-02] MEDS: aspirin 81 mg EC Tablet PO (05:18)
[2023-10-02] MEDS: duloxetine 30 mg Capsule PO (05:18)
[2023-10-02] MEDS: duloxetine 60 mg Capsule PO (05:18)
[2023-10-02 05:35] LABS: Glucose Point of Care 90 mg/dL (70-110)
[2023-10-02 05:37] LABS: Basophils % 0.5 %; Eosinophils # 0.1 10^3/uL (0.0-0.8); Eosinophils % 1.3 %; Hematocrit 42.1 % (36-47); Lymphocytes # 1.3 10^3/uL (0.8-4.8); Mean Corpuscular HGB Conc 29.9 g/dL (30-55); Mean Corpuscular Hemoglobin 24.8 pg (27-33); Mean Corpuscular Volume 82.9 fl (85-98); Mean Platelet Volume 11.2 fL (7.4-10.4); Monocytes # 0.3 10^3/uL (0.2-0.9); Monocytes % 8.4 %; Neutrophils # 2.18 10^3/uL (1.8-7.7); Neutrophils % 55.3 %; Nucleated Red Blood Cells % 0 %; Platelet Count 231 10^3/cmm (157-399); Red Blood Count 5.08 10^6/uL (3.85-5.65); Red Cell Distribution Width 16.3 % (12.1-15.1); White Blood Count 3.94 10^3/uL (3.29-11.43)
[2023-10-02 05:57] LABS: Estmated Average Glucose 151; Hemoglobin A1C 6.9 % (4.0-6.0)
[2023-10-02 06:00] LABS: Alanine Aminotransferase 42 U/L (0-33); Albumin Level 3.3 g/dL (3.5-5.2); Alkaline Phosphatase 224 U/L (35-105); Anion Gap 11.3 (5-19); Aspartate Amino Transferase 39 U/L (0-32); Blood Urea Nitrogen 18 mg/dL (8-23); Calcium 9.1 mg/dL (8.5-10.5); Carbon Dioxide 30 mmol/L (22-29); Chloride 106 mmol/L (98-107); Creatinine Clr Calc Pharmacy 63.4392; Globulin 2.9 g/dL (1.3-4.6); Glomerular Filtration Rate 71.1 mL/min (90-130); Glucose 53 mg/dL (65-115); Magnesium 2.2 mg/dL (1.7-2.3); Osmolality Calculated 297 mOsm/kg (285-295); Phosphorus 3.8 mg/dL (2.5-4.5); Potassium 3.3 mmol/L (3.5-5.1); Sodium 144 mmol/L (136-145); Total Bilirubin 0.4 mg/dL (0.15-1.2); Total Protein 6.2 g/dL (6.6-8.7)
--- NOTE | 2023-10-02 06:01 | PC.NURSE ---
late entry, patient confused, oriented to person only, at beginning of shift pt attempted to pull IV tubing apart and was kicking at cuprous chloride helper, was able to be redirected by nurse and cuprous chloride helper, later pt work up screaming get out, you broke into my house, help , pt was combative, kicking and swatting at staff members, not able to redirect, contacted Dr Evans and received order for haldol IM, at 0500 glucose was 42 on continuous D10 infusion, pt given D10 bolus per protocol, after which glucose was 90, contacted Dr Evans with order to continue D10 at 75 ml/hr, 1:1 sitter at bedside, continue to monitor
[2023-10-02 06:21] LABS: Folate Level > 20.0 ng/mL (4.8-37.3)
[2023-10-02] MEDS: heparin 5,000 unit/mL INJ 1 mL 5000 UNIT SUBCUT ×2 (07:04→20:13)
[2023-10-02] MEDS: dextrose 10% 1,000 ML 75 ML IV ×2 (07:04→20:14)
[2023-10-02 09:30] LABS: Glucose Point of Care 76 mg/dL (70-110)
[2023-10-02] MEDS: pantoprazole DR 40 mg Tablet PO (10:03)
[2023-10-02] MEDS: carvedilol 12.5 mg Tablet PO ×2 (10:03→18:31)
[2023-10-02] MEDS: sacubitril/valsartan 24-26 mg Tablet 4 EACH PO ×2 (10:03→18:31)
[2023-10-02] MEDS: LORazepam 0.5 mg Tablet 1 MG PO ×2 (10:03→16:49)
--- NOTE | 2023-10-02 12:01 | P.PN_ITS ---
Subjective 2 Subjective: Overnight patient had an episode of agitation for which she needed Haldol. Today morning examination laying comfortably in bed. On room air. Abdomen hemodynamically stable. at bedside today. As per the her oral intake has been getting poor for last few months for which her neurological/sedative medications are being adjusted as an outpatient. Vitals/I&O/Wt Last Vital Signs Temp 97.6 F 10/02/23 08:00 Pulse 84 10/02/23 08:00 Resp 19 H 10/02/23 08:00 BP 120/66 10/02/23 08:00 Pulse Ox 94 10/02/23 08:00 O2 Del Method Room Air 10/02/23 04:00 10/01/23 10/02/23 10/02/23 22:59 06:59 14:59 Intake Total 196 / 196 605 / 801 904 / 904 Balance 196 / 196 605 / 801 904 / 904 Weight last 48 hrs Weight 83.121 kg Weight 82.554 kg Weight 82.69 kg Physical Exam 2 Narrative: General: No acute distress, Awake but alert x1 HEENT: PERRLA, pupils bilaterally equal and reactive Chest: Normal vesicular breath sounds, no added sounds, equal good air entry bilaterally CVS: S1-S2 regula, few missed beats, soft PSM at apex, no tachycardia, no gallops, no rubs Abdomen: Soft, nontender, no organomegaly, bowel sounds present Neuro: No focal deficits, no facial deformity, power 5/5 in all limbs Data 10/02/23 04:58 10/02/23 04:58 A&P Assessment and plan (1) Hypoglycemia: In setting of uncontrolled type 2 diabetes mellitus at baseline with last known A1c of 10.2 back in November 2022. Getting complicated by poor oral intake in setting of Lewy body dementia. had already stopped slow acting insulin. But was still given Lantus 50 units nightly. Last received yesterday. A1c of 6.9. Most likely in setting of poor oral intake. Most likely will need to discontinue long-acting insulin and discharged only on insulin as per sliding scale. Continue to monitor blood sugars every 4 hourly. Continue with D10 fluid. Monitor for fluid overload. Hypoglycemia protocol. If needed will plan to add glucagon. Will try to avoid going higher on IV fluids given history of congestive heart failure. (2) Transaminitis: Most likely in setting of congestive heart failure leading to congestive hepatomegaly. Hepatitis panel negative. Appreciate CT abdomen pelvis concerning for dilated IVC. Transaminitis stable for now. Chest x-ray concerning for possible soft tissue mass at right heart border. Appreciate CT with contrast chest abdomen pelvis. (3) Uncontrolled diabetes mellitus: A1c down to 6.9 now. (4) Lewy body dementia: Continue with home dose of lorazepam 1 mg twice daily, Seroquel 50 mg nightly and Cymbalta. Haldol 1 mg IM every 4 hours as needed for agitation in setting of . states patient gets agitated every time in evening around 4 to 5 PM for which he uses 1 mg of scheduled lorazepam. Will treat him lorazepam to match home timings. Sitter at bedside. Qualifiers: Dementia severity: severe Dementia behavioral or psychological symptom: with agitation Qualified Code(s): G31.83 - Neurocognitive disorder with Lewy bodies; F02.C11 - Dementia in other diseases classified elsewhere, severe, with agitation (5) Acute ischemic multifocal multiple vascular territories stroke: As seen on MRI done in December 2022. Last echocardiogram done in June 2022 showed an EF of 30% with grade 1 diastolic dysfunction. As per review of old neurology documentation it was decided not to start anticoagulation because of her episodes of agitation. As per the patient is not on hospice anymore. Continue with baby aspirin. (6) Non-ischemic cardiomyopathy: Continue with home dose of carvedilol and Entresto. No overt concerns for fluid overload for now. Does have dilated IVC on CT abdomen/pelvis. IV Lasix 20 mg one-time. Replace potassium with 80 mg IV. (7) Benign essential HTN: Goal blood pressure less than 140/90 mmHg. Continue with home dose of carvedilol and Entresto. (8) COPD (chronic obstructive pulmonary disease): No active exacerbation. DuoNeb as needed. (9) Gait instability: Plan Urinalysis consistent with mild UTI. Patient does not have any fever or leukocytosis. For now given her clinical picture we will start her on IV ceftriaxone IV follow-up urine culture. CODE STATUS: Discussed in detail with the patient's /DPOA at bedside. Patient is not on hospice anymore. understands patient's quality of life is poor. Does not want any kind of resuscitative measures if her heart stops. DNR/DNI. Regular diet as able. Protonix OPD prophylaxis Heparin 5000 every 12 hourly for DVT prophylaxis Attestations 2 Medical Necessity Statement*: Requires further hospitalization for management of persistent hypoglycemia in setting of home dose of Lantus in a patient with poor oral intake because of baseline Lewy body dementia, congestive heart failure with EF of 30% Coding Level of Care Code Acute Code for Chg Fwd Diagnoses Hypoglycemia E16.2 Transaminitis R74.01 Uncontrolled diabetes mellitus Severe Lewy body dementia with agitation G31.83; F02.C11 Dementia severity: severe Dementia behavioral or psychological symptom: with agitation Acute ischemic multifocal multiple vascular territories stroke I63.89 Non-ischemic cardiomyopathy I42.8 Benign essential HTN I10 COPD (chronic obstructive pulmonary disease) J44.9 Gait instability R26.81
[2023-10-02] MEDS: cefTRIAXone 1,000 MG in sodium chloride 0.9% (plus) 50 ML 100 MG IV (12:10)
[2023-10-02] MEDS: lidocaine 1% 5 ML in potassium chloride premix 100 ML 26.25 ML IV ×2 (12:49→16:35)
[2023-10-02] MEDS: FUROsemide 10 mg/mL SDV 2mL 20 MG IVP (12:52)
[2023-10-02 13:28] LABS: Glucose Point of Care 169 mg/dL (70-110)
[2023-10-02] MEDS: magnesium hydroxide 30 mL UDC PO (16:49)
[2023-10-02 17:07] LABS: Glucose Point of Care 167 mg/dL (70-110)
[2023-10-02] MEDS: quetiapine 25 mg Tablet 50 MG PO (20:13)
[2023-10-02 20:27] LABS: Glucose Point of Care 317 mg/dL (70-110)
[2023-10-02] MEDS: haloperidol inj 5 mg/mL INJ 1 mL 1 MG IM (21:10)
[2023-10-02] MEDS: morphine 4 mg/mL SDV 1 mL 2 MG IVP (22:03)
[2023-10-03] VITALS (7 sets, daily range): BP systolic 129–137; BP diastolic 76–84; PULSE 82–87; RESP 19–20; TEMP 36.8–37.1; O2SAT 91–96
[2023-10-03 01:09] LABS: Glucose Point of Care 236 mg/dL (70-110)
[2023-10-03 03:15] LABS: Basophils % 0.6 %; Eosinophils # 0.1 10^3/uL (0.0-0.8); Eosinophils % 2.9 %; Hematocrit 37.4 % (36-47); Lymphocytes # 1.9 10^3/uL (0.8-4.8); Lymphocytes % 59.5 %; Mean Corpuscular HGB Conc 30.2 g/dL (30-55); Mean Corpuscular Hemoglobin 24.7 pg (27-33); Mean Corpuscular Volume 81.8 fl (85-98); Mean Platelet Volume 11.6 fL (7.4-10.4); Monocytes # 0.3 10^3/uL (0.2-0.9); Monocytes % 8.4 %; Neutrophils % 28.6 %; Nucleated Red Blood Cells % 0 %; Platelet Count 203 10^3/cmm (157-399); Red Blood Count 4.57 10^6/uL (3.85-5.65); White Blood Count 3.11 10^3/uL (3.29-11.43)
[2023-10-03 03:24] LABS: Neutrophils # 0.89 10^3/uL (1.8-7.7)
[2023-10-03 03:42] LABS: Alanine Aminotransferase 35 U/L (0-33); Albumin Level 3.1 g/dL (3.5-5.2); Alkaline Phosphatase 186 U/L (35-105); Aspartate Amino Transferase 29 U/L (0-32); Blood Urea Nitrogen 17 mg/dL (8-23); Calcium 8.6 mg/dL (8.5-10.5); Carbon Dioxide 26 mmol/L (22-29); Chloride 107 mmol/L (98-107); Creatinine Clr Calc Pharmacy 56.3904; Globulin 2.6 g/dL (1.3-4.6); Glomerular Filtration Rate 62.1 mL/min (90-130); Glucose 207 mg/dL (65-115); Osmolality Calculated 298 mOsm/kg (285-295); Sodium 140 mmol/L (136-145); Total Bilirubin 0.4 mg/dL (0.15-1.2); Total Protein 5.7 g/dL (6.6-8.7)
--- NOTE | 2023-10-03 05:01 | PC.NURSE ---
Late entry; at 2029 patients blood sugar was 317; Contacted the hospitalist Dr Muñoz and he advised to stop her D10 infusion
[2023-10-03 05:02] LABS: Glucose Point of Care 137 mg/dL (70-110)
[2023-10-03] MEDS: aspirin 81 mg EC Tablet PO (05:14)
[2023-10-03] MEDS: duloxetine 60 mg Capsule PO (05:14)
[2023-10-03] MEDS: duloxetine 30 mg Capsule PO (05:14)
[2023-10-03] MEDS: LORazepam 0.5 mg Tablet 1 MG PO (05:14)
[2023-10-03] MEDS: heparin 5,000 unit/mL INJ 1 mL 5000 UNIT SUBCUT (07:46)
[2023-10-03 08:13] LABS: Glucose Point of Care 135 mg/dL (70-110)
[2023-10-03] MEDS: sacubitril/valsartan 24-26 mg Tablet 4 EACH PO (08:34)
[2023-10-03] MEDS: magnesium hydroxide 30 mL UDC PO (08:34)
[2023-10-03] MEDS: pantoprazole DR 40 mg Tablet PO (08:34)
[2023-10-03] MEDS: carvedilol 12.5 mg Tablet PO (08:34)
[2023-10-03 10:53] LABS: Glucose Point of Care 159 mg/dL (70-110)
[2023-10-03] MEDS: cefTRIAXone 1,000 MG in sodium chloride 0.9% (plus) 50 ML 100 MG IV (11:16)
[2023-10-03] MEDS: insulin lispro 100 unit/1 mL SUBCUT (11:24)
--- NOTE | 2023-10-03 12:41 | PM.DCS ---
Discharge Providers Date of Admission: 10/02/23 12:01 Date of Discharge: October 03, 2023 Attending Provider at Admission: George Muñoz MD Attending Provider at Discharge: George Muñoz MD Primary Care Provider: Jen Hill MD Diagnoses at Discharge Discharge Diagnosis (1) Hypoglycemia: Status: Acute (2) Transaminitis: Status: Acute (3) Uncontrolled diabetes mellitus: Status: Acute (4) Lewy body dementia: Status: Acute Qualifiers: Dementia behavioral or psychological symptom: with agitation Dementia severity: severe Qualified Code(s): G31.83 - Neurocognitive disorder with Lewy bodies; F02.C11 - Dementia in other diseases classified elsewhere, severe, with agitation (5) Acute ischemic multifocal multiple vascular territories stroke: Status: Acute (6) Non-ischemic cardiomyopathy: Status: Acute (7) Benign essential HTN: Status: Acute (8) COPD (chronic obstructive pulmonary disease): Status: Acute (9) Gait instability: Status: Acute Reason for Visit Reason for Visit: hypoglycemia, low hr Brief History: History as per HPI: Juli Humphries is a 67 year old female with past medical history of Lewy body dementia, acute ischemic multiple vascular strokes, memory loss, nonischemic cardiomyopathy with last known EF 30%, type 2 diabetes mellitus, hypertension who has been having decreased oral intake at home as per the patient's primary caregiver/. As per the report from ER physician by himself because of poor renal intake has been cutting down on her insulin requirement and is currently only on Lantus of 50 units nightly which she took last night and short acting insulin has been stopped. On visit to the ER patient was laying comfortably in bed, confused seems to be at baseline. No family members present at bedside. On calling was not able to get in touch as well. As per the EMS report, when EMS arrived her blood sugars were in 50s for which she was given D50 and on route to the ER her blood sugars were in 117s. In the ER she was needed to be placed on D10 drip to maintain her blood sugars at 70. Hospital Course Hospital Course Patient was admitted to the hospital further evaluation management of persistent hypoglycemia in setting of high-dose of Lantus at home. After admission further interview was done with patient's at bedside. As per the patient has been more sleepy over the last 6 months, oral intake has been decreasing over the last 6 months because she is becoming more drowsy for which as an outpatient her antianxiety and psych medications have been adjusted though she continues to have poor oral intake. He has adjusted the insulin as per direction of his family doctor but yesterday her blood sugars are persistently low so he presented to the ER. Patient was admitted and was started on dextrose fluid. Gradually her blood sugars improved. She did have an episode of agitation for which she required Haldol. After placing sitter her mentation has improved and she did not have any further episodes of agitation and patient was back to her baseline mentation albeit confused. She has been discharged back home in hemodynamically stable condition on insulin sliding scale as per low protocol. Insulin sliding scale has been provided to the patient. A1c was repeated which came back at 6.9. She has also been started on oral Januvia. She is to follow-up with a primary care provider within next 1 week with blood sugar diary. He is to check her blood sugars daily premeals at home for next 1 to 2 weeks. She did have concerns for UTI on urinalysis for which she has been discharged on oral Levaquin for next 5 days. Physical Exam Narrative: General: No acute distress, Awake but alert x1 HEENT: PERRLA, pupils bilaterally equal and reactive Chest: Normal vesicular breath sounds, no added sounds, equal good air entry bilaterally CVS: S1-S2 regula, few missed beats, soft PSM at apex, no tachycardia, no gallops, no rubs Abdomen: Soft, nontender, no organomegaly, bowel sounds present Neuro: No focal deficits, no facial deformity, power 5/5 in all limbs Discharge Data Studies Completed and Pending Completed Studies During Hospitalization Category Date Time Status CT chest abdomen pelvis [CT chest abdpel w/*[id number] Cat Scan 10/01/23 15:29 Completed ] Stat XR chest 1V portable [id number] Stat Exams 10/01/23 13:48 Completed Pending at discharge Category Date Time Status Respiratory Panel 2 Routine Lab 10/03/23 12:05 Received Urine Culture Stat Lab 10/01/23 16:25 Results Radiology Impressions Chest X-Ray 10/01/23 13:48 IMPRESSION: 1. Circular soft tissue mass along the RIGHT heart border. Differential considerations would include lobar atelectasis, mass or cardiac aneurysm. 2. Trace LEFT basal pleural effusion. 3. There may be some widening of the mediastinum on the RIGHT. RIGHT basal plaque atelectasis. Recommendation: Contrast CT scanning of the chest is recommended for further work-up. Chest/Abdomen/Pelvis CT 10/01/23 15:29 IMPRESSION: 1. Findings suggesting mild congestive failure or fluid overload. 2. Borderline left axillary lymph nodes. IMPRESSION: 1. Large amount of colonic stool with diverticulosis no acute inflammatory change. 2. Splenomegaly 3. Urinary bladder wall thickening possibly related to inflammatory change, neurogenic disease or other pathology. Clinical correlation recommended 4. Mild anasarca with passive venous congestion of the liver. Laboratory Results WBC 3.11 10^3/uL (3.29-11.43) L 10/03/23 02:07 RBC 4.57 10^6/uL (3.85-5.65) 10/03/23 02:07 Hgb 11.30 g/dL (11.27-16.99) 10/03/23 02:07 Hct 37.4 % (36-47) 10/03/23 02:07 MCV 81.8 fl (85-98) L 10/03/23 02:07 MCH 24.7 pg (27-33) L 10/03/23 02:07 MCHC 30.2 g/dL (30-55) 10/03/23 02:07 RDW 16.0 % (12.1-15.1) H 10/03/23 02:07 Plt Count 203 10^3/cmm (157-399) 10/03/23 02:07 MPV 11.6 fL (7.4-10.4) H 10/03/23 02:07 Neut % (Auto) 28.6 % 10/03/23 02:07 Lymph % (Auto) 59.5 % 10/03/23 02:07 [place] % (Auto) 8.4 % 10/03/23 02:07 Eos % (Auto) 2.9 % 10/03/23 02:07 Baso % (Auto) 0.6 % 10/03/23 02:07 Neut # (Auto) 0.89 10^3/uL (1.8-7.7) L* 10/03/23 02:07 Lymph # (Auto) 1.9 10^3/uL (0.8-4.8) 10/03/23 02:07 [place] # (Auto) 0.3 10^3/uL (0.2-0.9) 10/03/23 02:07 Eos # (Auto) 0.1 10^3/uL (0.0-0.8) 10/03/23 02:07 Baso # (Auto) 0.0 10^3/uL (0.0-0.1) 10/03/23 02:07 Nucleated RBC % (auto) 0 % 10/03/23 02:07 Nucleated RBCs # 0.0 /100WBC 10/03/23 02:07 Sodium 140 mmol/L (136-145) 10/03/23 02:07 Potassium 4.0 mmol/L (3.5-5.1) 10/03/23 02:07 Chloride 107 mmol/L (98-107) 10/03/23 02:07 Carbon Dioxide 26 mmol/L (22-29) 10/03/23 02:07 Anion Gap 11.0 (5-19) 10/03/23 02:07 BUN 17 mg/dL (8-23) 10/03/23 02:07 Creatinine 0.9 mg/dL (0.5-0.9) 10/03/23 02:07 GFR Calculation 62.1 mL/min (90-130) L 10/03/23 02:07 Glucose 207 mg/dL (65-115) H 10/03/23 02:07 POC Glucose 159 mg/dL (70-110) H 10/03/23 10:14 Estimat Average Glucose 151 10/02/23 04:58 Hemoglobin A1c 6.9 % (4.0-6.0) H 10/02/23 04:58 Calculated Osmolality 298 mOsm/kg (285-295) H 10/03/23 02:07 Calcium 8.6 mg/dL (8.5-10.5) 10/03/23 02:07 Phosphorus 3.8 mg/dL (2.5-4.5) 10/02/23 04:58 Magnesium 2.2 mg/dL (1.7-2.3) 10/02/23 04:58 Iron 27 ug/dL (37-145) L 10/01/23 14:26 TIBC 285 mcg/dl 10/01/23 14:26 % Saturation 9.4 % (20-50) L 10/01/23 14:26 Unsat Iron Binding 258 ug/dL (112-347) 10/01/23 14:26 Total Bilirubin 0.4 mg/dL (0.15-1.2) 10/03/23 02:07 AST 29 U/L (0-32) 10/03/23 02:07 ALT 35 U/L (0-33) H 10/03/23 02:07 Alkaline Phosphatase 186 U/L (35-105) H 10/03/23 02:07 Troponin T Baseline 31 ng/L (0-10) H 10/01/23 14:26 Troponin T 120 Minute 32.36 ng/L (0-10) H 10/01/23 16:13 Delta Troponin T 1.36 ABS# (0-10) 10/01/23 16:13 Troponin T Hi Sens 6Hr 37.35 ng/L (0-10) H 10/01/23 20:22 Troponin T Hi Sens 6Hr Delta 6.35 ng/L (0-12) 10/01/23 20:22 Total Protein 5.7 g/dL (6.6-8.7) L 10/03/23 02:07 Albumin 3.1 g/dL (3.5-5.2) L 10/03/23 02:07 Globulin 2.6 g/dL (1.3-4.6) 10/03/23 02:07 Vitamin B12 > 2000 pg/mL (232-1245) H 10/01/23 14:26 Folate > 20.0 ng/mL (4.8-37.3) 10/02/23 04:58 Random Cortisol 24.39 ug/dL (2.47-19.5) H 10/01/23 14:26 Urine Color Yellow (Yellow) 10/01/23 16:25 Urine Appearance Slightly cloudy (CLEAR) 10/01/23 16:25 Urine pH 5 (5-7) 10/01/23 16:25 Ur Specific [place] 1.010 (1.005-1.030) 10/01/23 16:25 Urine Protein 1+ (Negative) H 10/01/23 16:25 Urine Glucose (UA) Norm (Normal) 10/01/23 16:25 Urine Ketones Negative (Negative) 10/01/23 16:25 Urine Blood 2+ (Negative) H 10/01/23 16:25 Urine Nitrate Positive (Negative) A 10/01/23 16:25 Urine Bilirubin Neg (Negative) 10/01/23 16:25 Urine Urobilinogen Norm mg/dL (Negative) 10/01/23 16:25 Ur Leukocyte Esterase 1+ (Negative) H 10/01/23 16:25 Urine RBC 0-4 /hpf (0-2) H 10/01/23 16:25 Urine WBC 25-40 /hpf (0-5) H 10/01/23 16:25 Ur Squamous Epith Cells 0-4 /hpf (0-5) H 10/01/23 16:25 Amorphous Sediment Not Reportable 10/01/23 16:25 Urine Bacteria 4+ /hpf (NONE) H 10/01/23 16:25 Vitals Last Vital Signs Temp 98.4 F 10/03/23 11:41 Pulse 84 10/03/23 11:41 Resp 19 H 10/03/23 04:00 BP 133/79 10/03/23 11:41 Pulse Ox 92 10/03/23 11:41 O2 Del Method Room Air 10/03/23 11:41 Discharge Plan Discharge Patient Disposition: Home Condition: Stable Prescriptions: New Humalog KwikPen Insulin 100 unit/mL insulin pen See Protocol SUBCUT TID Qty: 15 0RF Protocol: Insulin Corrective High-Dose Regimen Condition: Fingerstick Blood Glucose Dose/Route: Insulin Units Condition: 141-180 mg/dl Dose/Route: 2 units/SQ Condition: 181-220 mg/dl Dose/Route: 4 units/SQ Condition: 221-260 mg/dl Dose/Route: 6 units/SQ Condition: 261-300 mg/dl Dose/Route: 8 units/SQ Condition: 301-350 mg/dl Dose/Route: 10 units/SQ Condition: 351-400 mg/dl Dose/Route: 12 units/SQ Condition: greater than 400 mg/dl Dose/Route: 14 units/SQ levofloxacin 500 mg tablet 500 mg PO Q24H 5 Days Qty: 5 0RF Januvia 100 mg tablet 100 mg PO DAILY Qty: 30 0RF Continued mecobalamin (vitamin B12) 1,000 mcg tablet,chewable 1,000 mcg PO DAILY duloxetine 60 mg capsule,delayed release(DR/EC) 60 mg PO QAM Rx Instructions: ALONG with 30mg to =90mg lorazepam 0.5 mg tablet 1 mg PO BID Qty: 180 2RF Rx Instructions: 1-2 every 6 hours as needed for anxiety carvedilol 12.5 mg tablet 12.5 mg PO BID Qty: 180 2RF naproxen sodium [Aleve] 220 mg Tablet 440 mg PO Q12H PRN (Reason: Pain) duloxetine 30 mg capsule,delayed release(DR/EC) 30 mg PO QAM Rx Instructions: TAKE WITH 60MG TO =90MG cholecalciferol (vitamin D3) [Vitamin D3] 25 mcg (1,000 unit) Capsule 25 mcg PO QAM aspirin 81 mg Tablet,Delayed Release (Dr/Ec) 81 mg PO QAM Entresto 97-103 mg tablet 1 tab PO BID furosemide 20 mg tablet 40 mg PO QAM potassium chloride 20 mEq tablet extended release 20 meq PO QAM quetiapine 50 mg tablet 50 mg PO BEDTIME Rx Instructions: 1/2 to 2 tablets AT BEDTIME Discontinued insulin degludec [Tresiba FlexTouch U-200] 200 unit/mL (3 mL) insulin pen 52 unit SUBCUT BEDTIME Discharge Orders: Discharge Order (Routine); Ordered 10/03/23 Ordered By: George Muñoz Referrals: Jen Hill MD [Primary Care Provider] - 4-7 days (Please call for an follow-up appointment within 4 to 7 days. Thank you! ) Discharge Diet: Regular Discharge Activity: Resume usual activity and Increase activity as tolerated Patient Instructions: COPD, Levofloxacin (By mouth), Sitagliptin (By mouth), Hypoglycemia, COPD Stoplight, Opioid Safety, Pain Management Activity Restrictions/Additional Instructions: Do not take long-acting insulin/Tresiba anymore. Instead take short acting insulin/lispro going forward as per the sliding scale as below. If Fingerstick Blood Glucose, then Insulin Units; If 141-180 mg/dl, then 2 units/SQ; If 181-220 mg/dl, then 4 units/SQ; If 221-260 mg/dl, then 6 units/SQ; If 261-300 mg/dl, then 8 units/SQ; If 301-350 mg/dl, then 10 units/SQ; If 351-400 mg/dl, then 12 units/SQ; If greater than 400 mg/dl, then 14 units/SQ Check your blood sugars daily at home maintain a blood sugar diary and follow-up with a primary care provider within next 1 week for further adjustment of insulin dose. Take Januvia which is the oral diabetes medication going forward daily. Levaquin is the antibiotic which you should take for next 5 days Discharge Attestations Time Spent in Discharge Care*: greater than 30 min Specific Discharge Activities: educating and/or supporting family/caregiver, discussing with pcp/other providers, discussing with case preparer and liner/social workers/dc planners, documenting/other paperwork and evaluating patient/reviewing data Status at Discharge: Cognitive status at discharge: moderately impaired cognition, Behavioral status at discharge: cooperative, Functional status at discharge: other assisted ambulation, Overall status at discharge: patient is back to baseline Quality Metrics Clinical Quality Measures [ No reported AMI, CVA or VTE this stay] Coding Level of Care Code 41543 Total time (in minutes) for Discharge: 60 Diagnoses Hypoglycemia E16.2 Transaminitis R74.01 Uncontrolled diabetes mellitus Severe Lewy body dementia with agitation G31.83; F02.C11 Dementia behavioral or psychological symptom: with agitation Dementia severity: severe Acute ischemic multifocal multiple vascular territories stroke I63.89 Non-ischemic cardiomyopathy I42.8 Benign essential HTN I10 COPD (chronic obstructive pulmonary disease) J44.9 Gait instability R26.81
[2023-10-03 14:07] LABS: Adenovirus Not Detected (NOT DETECT); Chlamydia Pneumoniae Not Detected (NOT DETECT); Coronavirus 229E,HKU1,NL63,OC4 Not Detected (NOT DETECT); Human Metapneumovirus Not Detected (NOT DETECT); Human Rhinovirus/Enterovirus Not Detected (NOT DETECT); Influenza A Not Detected (NOT DETECT); Influenza A H1 Not Detected (NOT DETECT); Influenza A H1-2009 Not Detected (NOT DETECT); Influenza A H3 Not Detected (NOT DETECT); Influenza B Not Detected (NOT DETECT); Mycoplasma Pneumoniae Not Detected (NOT DETECT); Parainfluenza Virus Type 1 Not Detected (NOT DETECT); Parainfluenza Virus Type 2 Not Detected (NOT DETECT); Parainfluenza Virus Type 3 Not Detected (NOT DETECT); Parainfluenza Virus Type 4 Not Detected (NOT DETECT); Respiratory Syncytial Virus A Not Detected (NOT DETECT); Respiratory Syncytial Virus B Not Detected (NOT DETECT); SARS-COV-2 Not Detected (NOT DETECT)
--- NOTE | 2023-10-03 14:31 | PC.NURSE ---
Discussed discharge with patient and spouse. Discussed follow up appointments, medications, insulin sliding scale and COPD Stop light. Verbalization of understanding from both spouse and patient.
== END 2023-10-03 13:30 | disposition home or self-care (01) | DRG 638 ==
LOC: ER 16:34 → MEDSURG 18:16
PROVIDERS: Admitting Provider Student in an Organized Health Care Education/Training Program; Emergency Provider Family Medicine; PCP Family Medicine; Visit Provider Student in an Organized Health Care Education/Training Program
DX: E11.649 Type 2 diabetes mellitus with hypoglycemia without coma (principal); F02.C11 Dementia in other diseases classified elsewhere, severe, with agitation; N39.0 Urinary tract infection, site not specified; F05 Delirium due to known physiological condition; Z79.4 Long term (current) use of insulin; Z66 Do not resuscitate; R26.89 Other abnormalities of gait and mobility; Z86.73 Personal history of transient ischemic attack (TIA), and cerebral infarction without residual deficits; I11.0 Hypertensive heart disease with heart failure; I50.9 Heart failure, unspecified; I25.5 Ischemic cardiomyopathy; J43.9 Emphysema, unspecified; J45.909 Unspecified asthma, uncomplicated; M79.7 Fibromyalgia; G31.83 Neurocognitive disorder with Lewy bodies
CPT/HCPCS: 36415; 36416; 71045; 71260; 74177; 80053; 81001; 82533; 82607; 82746; 82962; 83036; 83540; 83550; 83735; 84100; 84484; 85025; 87077; 87086; 87186; 87486; 87581; 87633; 93005; 94664; 96372; 96374; 99285; G0378; J0696; J1610; J1630; J1644; J1815; J1940; J2270; J3480; J7799; Q9967